=== PATIENT | female | born 1940 | race Caucasian/White ===

== ENCOUNTER 2024-04-22 10:25 | Outpatient (AMB) | payer MEDICARE, OTHER, SELFPAY ==
--- NOTE | 2024-04-22 10:26 | A.OFFVIS_ITS ---
Vital Signs 04/22/24 10:33 Height 5 ft BP 118/82 Blood Pressure Location Rt brachial Position Sitting Intake Visit Reasons: ENP-Hard to ambulate /unusual hand tremor/R/O Par Intake Note: Patient presents for unusual hand tremor Allergies Penicillins Allergy (Unknown, Verified 04/22/24 10:30) Unknown HPI Comments Details: 83y/o female comes here for evaluation of shuffling gait, falls. She is accompanied by her brother and sister in law. she used to live alone in an apartment in the first floor- her brother visited her often and has a [employer]. 3 weeks ago ( Mar 26) she was found in the stairs leading upto the house. she has had many falls before that . she was not using a cane or walker. No loss of consciousness. Her sister who lives upstairs called 911 and she was taken to [facility] ER. [facility] and [facility] to [facility] . The patient denies any back pain or neck pain After the fall in Mar she fractured her ribs. Her family noticed some abnormal movements in her right hand.she was started on carbidopa/levodopa 10/100 tid . The family is not sure if it helped. They are confused about the diagnosis. [facility] Medical History (Updated 04/22/24 @ 12:35 by Katie Powell MD) Gait apraxia Cleft palate and lip Vitamin D deficiency Osteoarthritis Hypercholesteremia HTN (hypertension) Generalized anxiety disorder Depression Anxiety and depression Family History Mother Dementia Father CHF (congestive heart failure) Sister Diabetes Social History Patient Tobacco Use Status: Never used Tobacco Physical Exam Vital Signs: Last Vital Signs BP 118/82 04/22/24 10:33 Const General: cooperative and comfortable Nutritional Appearance: average body habitus Orientation/consciousness: patient oriented x3 Neuro Other: dysconjugate gaze Normal blink and facial expression Repaired cleft palate FFM and foot taps normal Gait- needed help standing up from chair - whole p=body is tilted backwards and unable to walk General: patient oriented x3, tone normal, moves all extremities, no focal motor deficits and Unable to assess gait Cranial nerves: Yes Facial sensation intact/muscles of mastication intact, Yes Bilaterally intact EOM present, Yes Nystagmus not present, Yes Normal facial strength present, Yes Midline tongue present, Yes Symmetric palate elevation present and Yes Ability to bilaterally elevate shoulders present Cognition (Neuro): normal cognition Gait exam (Neuro): Unable to assess gait Motor exam (neuro): 5/5 motor strength present throughout and Normal motor muscle tone present throughout Deep tendon reflexes (DTR's): Right triceps reflex intensity grade: 1+, Left triceps reflex intensity grade: 1+, Rt Biceps (C5, C6): 1+, Left biceps reflex intensity grade: 1+, Right brachioradialis reflex intensity grade: 1+, Left brachioradialis reflex intensity grade: 1+, Right patellar reflex intensity grade: 1+ and Left patellar reflex intensity grade: 1+ Coordination: [id number] test normal Assessment & Plan Assessment & Plan (1) Gait apraxia: Comment: Frnotal gait disorder, parkinsonism Code(s): R48.2 - Apraxia Category: Medical Plan Increase carbidopa/levodopa 25/100 2 tabs tid continue PT discussed about joint terminal attack controller plans as the patient will need 24/ supervision at home to prevent falls. Reviewed [facility] Discharge notes and CT brain. Coding Level of Care Code New Pt Level 4 (59467) Complex EM visit Add On G2211 Diagnoses Gait apraxia R48.2
[2024-04-22 10:33] VITALS: BP 118/82
--- OUTSIDE RECORDS SUMMARY | 2024-04-22 11:52 | XMS_ITS | Continuity of Care Document ---
Author Organization [facility] ter Address [address] [place] [id number] Care Team Providers Care Agency Recruiter Name Role Phone Coreen Lua MD Primary Care Phys[id number] Date(s): 03/28/24 - 03/30/[address] [id number] Discharge Disposition: Disch/Trans to IP Rehab or unit w/in Hos Attending Physician: Mindy Godoy MD Admitting Physician: Mindy Godoy MD Referring Physician: Not on Staff, Referring MD Encounter Type: Disch Obv Allergies, Adverse Reactions, Alerts Substance Criticality Severity Reaction Reaction Severity Status penicillins Active Immunizations Given and Recorded Vaccine Date Status Refusal Reason SARS-CoV-2 (COVID-19) mRNA-1273 vaccine 04/04/21 R ecorded pneumococcal 23-valent vaccine 07/23/20 Given SARS-CoV-2 (COVID-19) mRNA BNT-162b2 vac 06/30/20 Recorded SARS-CoV-2 (COVID-19) mRNA BNT-162b2 vac 06/07/20 Recorded pneumococcal 13-valent vaccine 11/17/18 Given influenza virus vaccine, inactivated 04/23/18 Booker rded influenza virus vaccine, inactivated 01/19/16 Booker rded influenza virus vaccine, inactivated 1 12/19/14 Re corded 1Location History: [place] Medications acetaminophen 325 mg oral tablet 650 mg, By Mouth, Every 6 hours, PRN, Refills 0, Maintenance, Pain , Mild, 03/30/24 9:50:00 AM EST,Partial fill upon patient request if the prescription is for a schedule II opioid drug. Start Date: 03/30/24 Status: Ordered Repeat number: 1 atenolol 100 mg oral tablet 1 tablet, By Mouth, Daily, # 90 tablet, 1 Refills, Maintenance, 02/03/24 3:58:00 PM EDT, [id number], 151.8, cm, 01/08/24 15:22:00 EDT, Height Start Date: 02/03/24 Status: Ordered Quantity: 90.0 Unit: tablet Repeat number: 1 atenolol 50 mg oral tablet 100 mg, Tablet, By Mouth, 03/30/24 9:00:00 AM EST Start Date: 03/30/24 Stop Date: 03/30/24 Status: Completed Repeat number: 1 chlorthalidone 25 mg oral tablet See Instructions, 1/2 tablet By Mouth Daily, # 30 tablet, Refills 5, Tot. Refills 5, Maintenance, 03/20/23 9:59:00 AM EST, Instructions Replace Required Details, Route to Pharmacy Electronically, [facility]/pharmacy #[id number], Partial fill upon patient request if the prescription is for a schedule II opioid drug., 151.8, cm, 03/20/23 9:45:00 EST, Height Start Date: 03/20/23 Status: Ordered Quantity: 30.0 Unit: tablet Repeat number: 6 Compression Stockings See Instructions, # 1 each, Refills 1, Tot. Refills 1, Maintenance, surgical, calf length 20-30 mm Hg, 1 pair, 02/08/24 1:43:00 PM EDT, Supply Start Date: 02/08/24 Status: Ordered Quantity: 1.0 Unit: each Repeat number: 2 escitalopram 20 mg oral tablet 1 tablet = 20 mg, By Mouth, Daily, # 90 tablet, 1 Refills, Maintenance, 01/01/24 2:14:00 PM EDT, Tablet, [facility]/pharmacy #[id number], Partial fill upon patient request if the prescription is for a schedule II opioid drug., 151.8, cm, 01/01/24 13:20:00 EDT, Height Start Date: 01/01/24 Status: Ordered Quantity: 90.0 Unit: tablet Repeat number: 2 gabapentin 100 mg oral capsule 100 mg, By Mouth, 3 times a day, PRN, Refills 0, Maintenance, Pain , Mild, 03/30/24 9:50:00 AM EST,Partial fill upon patient request if the prescription is for a schedule II opioid drug. Start Date: 03/30/24 Status: Ordered Repeat number: 1 gabapentin 100 mg oral capsule 100 mg, Capsule, By Mouth, 03/30/24 9:00:00 AM EST Start Date: 03/30/24 Stop Date: 03/30/24 Status: Completed Repeat number: 1 ibuprofen 400 mg oral tablet 400 mg, By Mouth, 3 times a day, PRN, Refills 0, Maintenance, Pain , Mild, 03/30/24 9:51:00 AM EST,Partial fill upon patient request if the prescription is for a schedule II opioid drug. Start Date: 03/30/24 Status: Ordered Repeat number: 1 lidocaine 5% topical film 1 patch, Topically, Daily, 0 Refills, Maintenance, 03/30/24 9:51:00 AM EST, Patch, Partial fill upon patient request if the prescription is for a schedule II opioid drug. Start Date: 03/30/24 Status: Ordered Repeat number: 1 LORazepam 0.5 mg oral tablet 1 tablet = 0.5 mg, By Mouth, Daily, PRN as needed for anxiety, may take less, # 20 tablet, 0 Refills, Soft Stop, 01/01/24 2:15:00 PM EDT, Tablet, [facility]/pharmacy #[id number], 151.8, cm, 01/01/24 13:20:00 EDT, Height Start Date: 01/01/24 Status: Ordered Quantity: 20.0 Unit: tablet Repeat number: 1 oxyCODONE 5 mg oral tablet 5 mg, By Mouth, Every 6 hours, PRN, Refills 0, Tot. Refills 0, Maintenance, Pain , Severe, :51:00 AM EST, Partial fill upon patient request if the prescription is for a schedule II opioid drug. Start Date: 03/30/24 Status: Ordered Repeat number: 1 potassium chloride 20 mEq oral tablet, extended release 1 tablet = 20 mEq, By Mouth, Daily, # 90 tablet, 1 Refills, Maintenance, 03/20/23 10:00:00 AM EST, ER Tablet, [facility]/pharmacy #[id number], Partial fill upon patient request if the prescription is for a schedule II opioid drug., 151.8, cm, 03/20/23 9:45:00 EST, Height Start Date: 03/20/23 Stop Date: 09/16/23 Status: Ordered Quantity: 90.0 Unit: tablet Repeat number: 2 simvastatin 10 mg oral tablet 1, tablet, By Mouth, Daily at bedtime, # 90 tablet, Refills 3, Tot. Refills 3, Maintenance, :59:00 AM EST, Route to Pharmacy Electronically, [facility]/pharmacy #[id number], 151.8, cm, 03/20/23 9:45:00 EST, Height Start Date: 03/20/23 Status: Ordered Quantity: 90.0 Unit: tablet Repeat number: 4 Vitamin D3 2000 intl units oral capsule 1 capsule = 50 mcg, By Mouth, Daily, # 30 capsule, 5 Refills, Maintenance, 07/13/23 11:25:00 AM EDT,Capsule, [facility]/pharmacy #[id number], Partial fill upon patient request if the prescription is for a schedule II opioid drug., 151.8, cm, 07/13/23 11:00:00 EDT, Height Start Date: 07/13/23 Stop Date: 01/09/24 Status: Ordered Quantity: 30.0 Unit: capsule Repeat number: 6 Problem List Condition Confirmation Course Effective Dates Status Health Status Informant At high risk for falls Confirmed Active Depression Confirmed Active Fall at home Confirmed Active THEO (generalized anxiety disorder) Confirmed Active HTN - Hypertension Confirmed Active Hypercholesterolemia Confirmed Active Anxiety and depression Confirmed Active Major depression Confirmed Active Obese class I Confirmed Active OA (osteoarthritis) of knee 1 Confirmed Active Vitamin D deficiency Confirmed Active 1right knee Results Radiology Reports * Exam Date Time Procedure Performing Provider Status 03/29/24 4:55 AM Chest 2 Views Frontal and Lat Kayley Morales; Auth (Verified) Notes: (Chest 2 Views Frontal and Lat) Reason For Exam: Trauma;Other: RESULT: Chest 2 Views Frontal and Lat Chest 2 Views Frontal and Lat Reason: Trauma COMPARISON: 01/01/2024 FINDINGS: LINES AND TUBES: None. LUNGS AND PLEURA: Bibasilar lung atelectasis. Normal pulmonary vascularity. No pleural effusion. No pneumothorax. HEART, MEDIASTINUM AND SHARDA: Heart is normal in size. Normal mediastinal and hilar contour. BONES AND SOFT TISSUES: No acute abnormality. IMPRESSION: No acute abnormality. Chronic bibasilar atelectasis. WSN: [id number] Ordering Physician: Foirdaliza Duke Dictated By: Chetan Huizar MD Dictated Date/Time: 03/29/24 9:04 am Reviewed By: Chetan Huizar MD Signed By: Chetan Huizar MD Signed Date/Time: 03/29/24 9:04 am Transcribed By: DRE Transcribed Date/Time: 03/29/24 9:03 am * Exam Date Time Procedure Performing Provider Status 03/28/24 2:[address] Lumbar Spine W/O Contrast Chloe Sanabria; Auth (Verified) Notes: (CT Lumbar Spine W/O Contrast) Reason For Exam: Spine fracture, lumbar, traumatic;Other: RESULT: CT Lumbar Spine W/O Contrast CT Thoracic Spine W/O Contrast, CT Lumbar Spine W/O Contrast INDICATION: Reason: Other:; Spine fracture, thoracic, traumatic; Clinical Question(s): Fracture Dislocation, Fracture/Dislocation TECHNIQUE: Noncontrast CT of the thoracic and lumbar spine was performed. Bone and soft tissue algorithms were reconstructed along with coronal and sagittal computations. Weight-based protocol using automatic tube modulation was used to optimize exposure parameters. RADIATION DOSE PARAMETERS: CTDIvol Body: 15.48 mGy, DLP Body: 811 mGy*cm. COMPARISON: No relevant FINDINGS: There are acute, nondisplaced fractures of the posterior left seventh through ninth rib at the costovertebral junction. No vertebral body fractures are seen. Kyphosis within the thoracic spine is noted. There is a 0.6 cm anterolisthesis of L4 on L5. A soft tissue ovoid mass at the posterior right fourth-fifth interspace is seen which may representa schwannoma. The heart is normal in size. Coronary arterial calcification is present. Subcentimeter mediastinal lymph nodes are demonstrated. Atelectasis adjacent to the left rib fractures is seen. A hiatal hernia is present. The remainder of the visualized abdominal contents are unremarkable. IMPRESSION: Fractures of the left posterior seventh through ninth ribs with adjacent atelectasis. An actionable message ([place]) has been communicated via the Nativeflow system on 03/28/2024 3:55 PM, Message ID [id number]. WSN: [id number] Ordering Physician: Jadyn Hawkins Dictated By: Lisa Winchester MD Dictated Date/Time: 03/28/24 3:55 pm Reviewed By: Lisa Winchester MD Signed By: Lisa Winchester MD Signed Date/Time: 03/28/24 3:55 pm Transcribed By: DRE Transcribed Date/Time: 03/28/24 3:50 pm * Exam Date Time Procedure Performing Provider Status 03/28/24 2:[address] Thoracic Spine W/O Contrast Cristina Sanabria; Auth (Verified) Notes: (CT Thoracic Spine W/O Contrast) Reason For Exam: Spine fracture, thoracic, traumatic;Other: RESULT: CT Thoracic Spine W/O Contrast CT Thoracic Spine W/O Contrast, CT Lumbar Spine W/O Contrast INDICATION: Reason: Other:; Spine fracture, thoracic, traumatic; Clinical Question(s): Fracture Dislocation, Fracture/Dislocation TECHNIQUE: Noncontrast CT of the thoracic and lumbar spine was performed. Bone and soft tissue algorithms were reconstructed along with coronal and sagittal computations. Weight-based protocol using automatic tube modulation was used to optimize exposure parameters. RADIATION DOSE PARAMETERS: CTDIvol Body: 15.48 mGy, DLP Body: 811 mGy*cm. COMPARISON: No relevant FINDINGS: There are acute, nondisplaced fractures of the posterior left seventh through ninth rib at the costovertebral junction. No vertebral body fractures are seen. Kyphosis within the thoracic spine is noted. There is a 0.6 cm anterolisthesis of L4 on L5. A soft tissue ovoid mass at the posterior right fourth-fifth interspace is seen which may representa schwannoma. The heart is normal in size. Coronary arterial calcification is present. Subcentimeter mediastinal lymph nodes are demonstrated. Atelectasis adjacent to the left rib fractures is seen. A hiatal hernia is present. The remainder of the visualized abdominal contents are unremarkable. IMPRESSION: Fractures of the left posterior seventh through ninth ribs with adjacent atelectasis. An actionable message ([place]) has been communicated via the [employer]flow system on 03/28/2024 3:55 PM, Message ID [id number]. WSN: [id number] Ordering Physician: Jadyn Hawkins Dictated By: Lisa Winchester MD Dictated Date/Time: 03/28/24 3:55 pm Reviewed By: Lisa Winchester MD Signed By: Lisa Winchester MD Signed Date/Time: 03/28/24 3:55 pm Transcribed By: DRE Transcribed Date/Time: 03/28/24 3:50 pm * Exam Date Time Procedure Performing Provider Status 03/28/24 2:[address] Pelvis W/O Contrast Daniele Cristina ; Auth (Verified) Notes: (CT Pelvis W/O Contrast) Reason For Exam: Pelvic trauma;Other: RESULT: CT Pelvis W/O Contrast CT Pelvis W/O Contrast Reason: Other:; Pelvic trauma; Clinical Question(s): Other:; Fracture TECHNIQUE: Spiral CT without IV contrast through the pelvis only formatted in 3 planes. Enteric contrast administered. Automatic tube modulation and/or iterative dose reconstruction were used to optimize exposure parameters. CTDIvol Body: 11.76 mGy, DLP Body: 359 mGy*cm. COMPARISON: None FINDINGS: Evaluation of the bony pelvis, and proximal femora demonstrate no evidence of acute fracture. Mild hip joint space narrowing bilaterally. Mild degenerative changes of the sacroiliac joints and pubic symphysis. Mixed lucent and sclerotic bone lesion within the right posterior iliac crest measuring at least 2.4 x 1.5 cm. The included musculature demonstrates no evidence of atrophy or fatty infiltration. Rounded soft tissue density mass or lymph node in the right inguinal region measuring 1.9 x 1.8 cm. Small broad-based fat-containing umbilical hernia. Included small and large bowel loops are normal in caliber. Moderate amount retained stool throughout the colon. Probable 1.8 cm calcified uterine fibroid. Urinary bladder contour is unremarkable. No evidence of intraperitoneal free air or ascites. No evidence of retroperitoneal lymphadenopathy. IMPRESSION: No evidence of pelvic fracture. 1.9 x 1.8 cm soft tissue density mass within the right inguinal region concerning for lymphadenopathy. Correlation with dedicated ultrasound is recommended. Mixed lucent and sclerotic bone lesion within the right posterior iliac crest measuring 2.4 x 1.5 cm is indeterminant but may represent a cartilage-containing lesion such as enchondroma. Correlation with prior imaging recommended to establish long-term stability of this finding. Additional chronic findings as above An actionable message ([place]) has been communicated via the [employer]flow system on 03/28/2024 2:54 PM, Message ID [id number]. WSN: [id number] Ordering Physician: Jadyn Hawkins Dictated By: Aidan Pineda Jr, MD Dictated Date/Time: 03/28/24 2:54 pm Reviewed By: Aidan Pineda Jr, MD Signed By: Aidan Pineda Jr, MD Signed Date/Time: 03/28/24 2:54 pm Transcribed By: DRE Transcribed Date/Time: 03/28/24 2:48 pm * Exam Date Time Procedure Performing Provider Status 03/28/24 2:[address] Cervical Spine W/O Contrast Cristina Sanabria; Auth (Verified) Notes: (CT Cervical Spine W/O Contrast) Reason For Exam: Neck trauma, dangerous injury mechanism;Other: RESULT: CT Cervical Spine W/O Contrast CT Head/Brain W/O Contrast, CT Cervical Spine W/O Contrast INDICATION: Reason: Trauma; Clinical Question(s): Hematoma TECHNIQUE: Noncontrast head CT using axial technique was reconstructed in axial and coronal planes.Noncontrast spiral CT through the cervical spine was formatted in 3 planes. Automatic tube modulation was used for the cervical spine and iterative dose reconstruction was used for both the head and cervical spine to optimize scan parameters and image quality. CTDIvol Body: 12.67 mGy, DLP Body: 248 mGy*cm. CTDIvol Head: 45.61 mGy, DLP Head: 821 mGy*cm. COMPARISON: 03/28/2022. FINDINGS: Restaurant Inspector View Findings, Lines and Tubes: None. BRAIN AND EXTRA-AXIAL SPACES: No parenchymal hemorrhage, midline shift, or mass effect. Bang-white matter differentiation is wellpreserved. No acute infarct. Mild prominence of the ventricles and sulci consistent with parenchymal volume loss. Mild low-density white matter changes. No subarachnoid hemorrhage. No subdural or epidural collection. CALVARIUM, SKULL BASE, AND SOFT TISSUES: No fractures or suspicious bony lesions. Partial opacification of the left maxillary and right sphenoid sinuses. Mastoid air cells are clear. Post lens replacement. Chronic deformity of the soft tissues overlying the nasal bones. CERVICAL SPINE: No fracture. No acute osseous abnormalities. Normal alignment. No locked or perched facet. Mild multilevel degenerative disc space narrowing andend plate irregularity. OTHER BONES: No acute abnormality. CERVICAL SOFT TISSUES AND LUNG APICES: Normal soft tissues. Visualized lung apices are clear. IMPRESSION: No acute abnormality of the head or cervical spine. WSN: [id number] Ordering Physician: Jadyn Hawkins Dictated By: Kira Echevarria MD Dictated Date/Time: 03/28/24 2:37 pm Reviewed By: Kira Echevarria MD Signed By: Kira Echevarria MD Signed Date/Time: 03/28/24 2:37 pm Transcribed By: DRE Transcribed Date/Time: 03/28/24 2:29 pm * Exam Date Time Procedure Performing Provider Status 03/28/24 2:[address] Head/Brain W/O Contrast Dmitry Sanabria; Auth (Verified) Notes: (CT Head/Brain W/O Contrast) Reason For Exam: Trauma RESULT: CT Head/Brain W/O Contrast CT Head/Brain W/O Contrast, CT Cervical Spine W/O Contrast INDICATION: Reason: Trauma; Clinical Question(s): Hematoma TECHNIQUE: Noncontrast head CT using axial technique was reconstructed in axial and coronal planes.Noncontrast spiral CT through the cervical spine was formatted in 3 planes. Automatic tube modulation was used for the cervical spine and iterative dose reconstruction was used for both the head and cervical spine to optimize scan parameters and image quality. CTDIvol Body: 12.67 mGy, DLP Body: 248 mGy*cm. CTDIvol Head: 45.61 mGy, DLP Head: 821 mGy*cm. COMPARISON: 03/28/2022. FINDINGS: Restaurant Inspector View Findings, Lines and Tubes: None. BRAIN AND EXTRA-AXIAL SPACES: No parenchymal hemorrhage, midline shift, or mass effect. Bang-white matter differentiation is wellpreserved. No acute infarct. Mild prominence of the ventricles and sulci consistent with parenchymal volume loss. Mild low-density white matter changes. No subarachnoid hemorrhage. No subdural or epidural collection. CALVARIUM, SKULL BASE, AND SOFT TISSUES: No fractures or suspicious bony lesions. Partial opacification of the left maxillary and right sphenoid sinuses. Mastoid air cells are clear. Post lens replacement. Chronic deformity of the soft tissues overlying the nasal bones. CERVICAL SPINE: No fracture. No acute osseous abnormalities. Normal alignment. No locked or perched facet. Mild multilevel degenerative disc space narrowing andend plate irregularity. OTHER BONES: No acute abnormality. CERVICAL SOFT TISSUES AND LUNG APICES: Normal soft tissues. Visualized lung apices are clear. IMPRESSION: No acute abnormality of the head or cervical spine. WSN: [id number] Ordering Physician: Jadyn Hawkins Dictated By: Kira Echevarria MD Dictated Date/Time: 03/28/24 2:37 pm Reviewed By: Kira Echevarria MD Signed By: Kira Echevarria MD Signed Date/Time: 03/28/24 2:37 pm Transcribed By: DRE Transcribed Date/Time: 03/28/24 2:29 pm Vital Signs Most recent to oldest [Reference Range]: 1 2 3 Height 152 cm (03/30/24 11: AM) 152 cm (03/30/24 7:29 AM) 152 cm (03/30/24 3:58 AM) Weight 69.8 kg (03/28/24 10:14 PM) Oxygen Saturation [94-100 %] 99 % (03/30/24: AM) 98 % (03/30/24 7:29 AM) 97 % (03/30/24 3:58 AM) Pulse Rate [55-90 bpm] 65 bpm (03/30/24 12:22 PM) 65 bpm (03/30/24 11: AM) 55 bpm (03/30/24 7:29 AM) Body Mass Index [18.5-24.99 kg/m2] 30.21 kg/m2 *>HHI* (03/28/24 10:14 PM) Blood Pressure [90-138/55-84 mm Hg] 134/73mm Hg (03/30/24 12:22 PM) 134/73mm Hg (03/30/24: AM) 137/88mm Hg (03/30/24 7:29 AM) Respiratory Rate [16-30 br/min] 20 br/min (03/30/24 12:21 PM) 18 br/min (03/30/24: AM) 18 br/min (03/30/24 7:29 AM) Temperature [96.8-100.4 DegF] 97.9 DegF (03/30/24 11: AM) 97.5 DegF (03/30/24 7:29 AM) 98 DegF (03/30/24 3:58 AM) Mode of Delivery (Oxygen) Room air (03/30/24 11:26 AM) Room air (03/30/24 7:29 AM) Room air (03/30/24 3:58 AM) Blood pressure sites Arm, left (03/30/24 11:26 AM) Arm, right (03/30/24 7:29 AM) Arm, right (03/30/24 3:58 AM) Temperature Route Oral (03/30/24 11:26 AM) Oral (03/30/24 7:29 AM) Oral (03/30/24 3:58 AM) Dry Weight 69.8 kg (03/28/24 10:14 PM) Social History Social History Type Response Smoking Status Never smoker entered on: 01/03/15 Sex Sex Representation Female (finding) Admission evaluation note * Fiordaliza Duke MD: PERFORM Event Display: Admission Note Authored Date: Patient: ??LETTY RIGGINS ? Age:??83 Years?Sex:??Female?:??1940?? Provider Clinical Summary Consulting Physician: Dr. Cedillo Clinical Question: Rib Fx Consult Attending:??Dr. Godoy Chief Complaint mechnical fall from standing; shoe slipped; landed on back; has left upper back and shoulder pain; no thinners; no LOC; no headstrike History of Present Illness Letty??is an 83-year-old female with a history of hypertension, hyperlipidemia??who had a mechanical fall earlier today. ??She presented to the emergency department??and on workup was found to have left-sided rib fractures 7 through 9.?? Given these findings??a trauma surgery consultation was requested. ?? The patient was seen about at bedside. ??She was resting comfortably in no acute distress. ??Shestates that she felt??as she was walking outside and landed on some stairs.?? She landed on her left side. ??She denies any head strike or loss of consciousness. ??She also denies any prodromal symptoms such as headache, vision changes, dizziness.?? She remembers the entire??accident.?? She denies any fever, chills, shortness of breath, nausea or vomiting.?? She states that she is recently had??pneumonia in the past.?? She denies??being on any blood thinners.?? She states that she is regularly able to ambulate without difficulty.?? I-S was completed at bedside and was only??250.?? Despite??fol lowing directions appropriately??there was a lack of effort. Review of Systems Negative unless specified above Physical Exam Vitals & Measurements T:??99.1?F?? TMIN:??98.1?F?? TMAX:??99.1?F?? HR:??78??(Peripheral)?? RR:??17?? BP:??168/72?? SpO2:??95%?? General: no acute distress, alert, awake Head: normocephalic, atraumatic, no hematomas, no abrasions, no wounds, no deformities Face: no ecchymosis, no abrasions, no wounds Eyes: pupils are 3mm, equal, round, and reactive; extraocular movement intact Ears: no hemotympanum, no blood in external auditory canal, no abrasions, no miller's sign Nose: no epistaxis, no deformity Mandible: no deformity, no malocclusion Neck: no hematoma, no ecchymosis, no wounds, trachea midline Chest: symmetric, no deformity, sternum, chest wall, and clavicles are nontender to palpation, no crepitus appreciated; IS 250 (no clear area of tenderness) Heart: regular rate and rhythm, no murmurs, Vascular: palpable dorsalis pedis and posterior tibial pulses bilaterally Lungs: clear to auscultation bilaterally, nonlabored breathing Abdomen: soft, nondistended, nontender, no wounds, no ecchymosis, no hematoma Pelvis: stable, nontender Back: no ecchymosis, no abrasions, no hematoma, no wounds Cervical spine: no midline deformities or stepoffs, no tenderness Thoracic spine: no midline deformities or stepoffs, no tenderness Lumbar spine: no midline deformities or stepoffs, no tenderness Extremities: no long bone deformities, no wounds, no abrasions, no ecchymosis, no hematomas, full active range of motion Neurologic: GCS15; CN II to XII grossly intact bilaterally; 5/5 strength and sensation to light touch intact in the bilateral upper and lower extremities?? Assessment/Plan Letty is an 83-year-old female??who presented from home for mechanical fall from standing??and in the emergency department was found to have left-sided rib fractures??7 through 9.?? Trauma surgery was consulted??for evaluation.?? The patient was seen and evaluated bedside and was hemodynamically stable and afebrile.?? There was minimal??pain??on evaluation??and her I-S was??250.?? Despite herlow I-S, the patient showed no signs of increased work of breathing??or respiratory distress. ??Shewas not on any supplemental oxygenation.?? Given the patient's rib fractures, she will need to be admitted for pain management have a??PT??consult completed for safe disposition. ?? Inj: L Rib Fx - ?? Plan: Admission Rib Fracture Pain Protocol AM CXR CPT/DuoNebs PT consult Med rec Tertiary in AM Case Management c/s ?? Discussed with Dr. Godoy Trauma Surgery [id number] ?? Problem List/Past Medical History Ongoing Anxiety and depression At high risk for falls Depression Fall at home THEO (generalized anxiety disorder) HTN - Hypertension Hypercholesterolemia Major depression OA (osteoarthritis) of knee Vitamin D deficiency Procedure/Surgical History ???cleft palate and cleft lip surgery Medications Inpatient Acetaminophen, 650 mg, By Mouth, Every 6 hours Acetaminophen Tablet, 650 mg, By Mouth, Once Duoneb Inhalation Solution, 1 vials, BAND Nebulizer, 4 times a day Enoxaparin Inj, 40 mg= 0.4 mL, Subcutaneous Injection, Daily gabapentin 100 mg oral capsule, 100 mg, By Mouth, 3 times a day Ibuprofen Tablet, 400 mg, By Mouth, 3 times a day Lidocaine 5% Patch, 1 each, Topically, Once oxyCODONE 5 mg oral tablet, 5 mg, By Mouth, Every 6 hours, PRN Remove Patch, 1 each, Topically, Once Home atenolol 100 mg oral tablet, 1 tablet, By Mouth, Daily Azithromycin 5 Day Dose Pack 250 mg oral tablet, 1 pack/packet, By Mouth, Once chlorthalidone 25 mg oral tablet, See Instructions, 5 refills Compression Stockings, See Instructions, 1 refills escitalopram 20 mg oral tablet, 20 mg= 1 tablet, By Mouth, Daily, 1 refills LORazepam 0.5 mg oral tablet, 0.5 mg= 1 tablet, By Mouth, Daily, PRN potassium chloride 20 mEq oral tablet, extended release, 20 mEq= 1 tablet, By Mouth, Daily, 1 refills simvastatin 10 mg oral tablet, 1 tablet, By Mouth, Daily at bedtime, 3 refills Vitamin D3 2000 intl units oral capsule, 50 mcg= 1 capsule, By Mouth, Daily, 5 refills Allergies penicillins Social History Alcohol Use: Never. Electronic Cigarette/Vaping Electronic Cigarette Use: Never. Employment/School Status: Retired. Other: [employer] [facility] [place]. Exercise Self assessment: Good condition. Home/Environment Living situation: Home/Independent. Lives with: Siblings. Nutrition/Health Diet: Regular. Sexual Sexually involved in last 6 months: No. Substance Abuse Use: Never. Tobacco Never smoker Family History Congestive heart failure: Father. Dementia: Mother. Diabetes mellitus type II: Sister. Immunizations Vaccine Date Status SARS-CoV-2 (COVID-19) mRNA-1273 vaccine 04/04/2021 Recorded pneumococcal 23-valent vaccine 07/23/2020 Given SARS-CoV-2 (COVID-19) mRNA BNT-162b2 vac 06/30/2020 Recorded SARS-CoV-2 (COVID-19) mRNA BNT-162b2 vac 06/07/2020 Recorded pneumococcal 13-valent vaccine 11/17/2018 Given influenza virus vaccine, inactivated 04/23/2018 Recorded influenza virus vaccine, inactivated 01/19/2016 Recorded influenza virus vaccine, inactivated 12/19/2014 Recorded Comments : [facility] Results BLOOD COUNT & DIFF WBC 11.3 k/mm3 (High)?? 03/28/2024 15:11 RBC 4.58 m/mm3 ()?? 03/28/2024 15:11 Hgb 13.1 Gm/dL ()?? 03/28/2024 15:11 Hct 40.8 % ()?? 03/28/2024 15:11 MCV 89.1 femtoliters ()?? 03/28/2024 15:11 MCH 28.6 pg ()?? 03/28/2024 15:11 MCHC 32.1 Gm/dL (Low)?? 03/28/2024 15:11 Platelet Count 180 k/mm3 ()?? 03/28/2024 15:11 RDW-SD 43.4 femtoliters ()?? 03/28/2024 15:11 MPV 11.7 femtoliters ()?? 03/28/2024 15:11 Nucleated RBC (Automated) 0.0 #/100 WBC'S ()?? 03/28/2024 15:11 Abs. NRBC 0.0 k/mm3 ()?? 03/28/2024 15:11 Abs. Neut 9.5 k/mm3 (High)?? 03/28/2024 15:11 Abs. Lymph 0.9 k/mm3 ()?? 03/28/2024 15:11 Abs. [place] 0.7 k/mm3 ()?? 03/28/2024 15:11 Abs. Eo 0.0 k/mm3 ()?? 03/28/2024 15:11 Abs. Baso 0.0 k/mm3 ()?? 03/28/2024 15:11 Neut % 84.4 % (High)?? 03/28/2024 15:11 Lymph % 8.0 % (Low)?? 03/28/2024 15:11 [place] % 6.2 % ()?? 03/28/2024 15:11 Eos % 0.4 % ()?? 03/28/2024 15:11 Baso % 0.3 % ()?? 03/28/2024 15:11 Imm Gran 0.7 % ()?? 03/28/2024 15:11 Abs. Imm Gran 0.1 k/mm3 ()?? 03/28/2024 15:11 ?? CARDIAC High Sensitivity Troponin (HSTnT) 22 ng/L (High)?? 03/28/2024 15:11 ?? CHEM GENERAL Sodium 140 mmol/L ()?? 03/28/2024 15:11 Potassium 4.3 mmol/L ()?? 03/28/2024 15:11 Chloride 102 mmol/L ()?? 03/28/2024 15:11 Bicarbonate Level 27 mmol/L ()?? 03/28/2024 15:11 Anion Gap 11 ()?? 03/28/2024 15:11 Glucose Level 131 mg/dL (High)?? 03/28/2024 15:11 BUN 14 mg/dL ()?? 03/28/2024 15:11 Creatinine-Blood 0.64 mg/dL ()?? 03/28/2024 15:11 Estimated GFR Creatinine 89 ML/MIN/1.73 M2 ()?? 03/28/2024 15:11 Calcium 9.2 mg/dL ()?? 03/28/2024 15:11 Protein, Total 6.8 Gm/dL ()?? 03/28/2024 15:11 Albumin 3.8 Gm/dL ()?? 03/28/2024 15:11 AG Ratio 1.3 ()?? 03/28/2024 15:11 Alkaline Phosphatase 168 units/L (High)?? 03/28/2024 15:11 AST (SGOT) 44 units/L (High)?? 03/28/2024 15:11 ALT (SGPT) 20 units/L ()?? 03/28/2024 15:11 Bilirubin, Total 0.8 mg/dL ()?? 03/28/2024 15:11 ?? ENDOCRINE/TUMOR MARKER TSH 1.56 uIU/mL ()?? 03/28/2024 15:11 ?? VIROLOGY COVID-19 by RT-PCR NEGATIVE ()?? 03/28/2024 15:11 ?? Images * Final Report * ?? Reason For Exam Trauma ?? RESULT: CT Head/Brain W/O Contrast CT Head/Brain W/O Contrast, CT Cervical Spine W/O Contrast? INDICATION: Reason: Trauma; Clinical Question(s): Hematoma ?? TECHNIQUE: Noncontrast head CT using axial technique was reconstructed in axial and coronal planes.Noncontrast spiral CT through the cervical spine was formatted in 3 planes. Automatic tube modulation was used for the cervical spine and iterative dose reconstruction was used for both the head and cervical spine to optimize scan parameters and image quality. ? CTDIvol Body: 12.67 mGy, ??DLP Body: 248 mGy*cm. ? CTDIvol Head: 45.61 mGy, DLP Head: 821 mGy*cm. ? COMPARISON: 03/28/2022. ?? FINDINGS:? Restaurant Inspector View Findings, Lines and Tubes: None. ?? BRAIN AND EXTRA-AXIAL SPACES: No parenchymal hemorrhage, midline shift, or mass effect. Bang-white matter differentiation is wellpreserved. No acute infarct. ?? Mild prominence of the ventricles and sulci consistent with parenchymal volume loss. ? Mild low-density white matter changes. ?? No subarachnoid hemorrhage. No subdural or epidural collection. ?? CALVARIUM, SKULL BASE, AND SOFT TISSUES: No fractures or suspicious bony lesions.? Partial opacification of the left maxillary and right sphenoid sinuses. Mastoid air cells are clear. ?? Post lens replacement. ?? Chronic deformity of the soft tissues overlying the nasal bones.? CERVICAL SPINE:?? No fracture. No acute osseous abnormalities. ?? Normal alignment. No locked or perched facet. Mild multilevel degenerative disc space narrowing andend plate irregularity. ?? OTHER BONES:?? No acute abnormality. ?? CERVICAL SOFT TISSUES AND LUNG APICES:?? Normal soft tissues. Visualized lung apices are clear. ?? IMPRESSION: ?? No acute abnormality of the head or cervical spine. ?? WSN: [id number] ? Ordering Physician: Jadyn Hawkins ?? Signature Line Dictated By: ?Kira Echevarria MD Dictated Date/Time: ?03/28/24 2:37 pm Reviewed By: ?Kira Echevarria MD Signed By: ? Kira Echevarria MD Signed Date/Time: ? 03/28/24 2:37 pm Transcribed By: ? CSB Transcribed Date/Time: ?03/28/24 2:29 pm ? CT Head/Brain W/O ContrastThis document has an image ?? * Final Report * ?? Reason For Exam Pelvic trauma;Other: ?? RESULT: CT Pelvis W/O Contrast CT Pelvis W/O Contrast? Reason: Other:; Pelvic trauma; Clinical Question(s): Other:; Fracture? TECHNIQUE: Spiral CT without IV contrast through the pelvis only formatted in 3 planes. Enteric contrast administered. Automatic tube modulation and/or iterative dose reconstruction were used to optimize exposure parameters.? CTDIvol Body: 11.76 mGy, ??DLP Body: 359 mGy*cm. ? COMPARISON: None ?? FINDINGS:? Evaluation of the bony pelvis, and proximal femora demonstrate no evidence of acute fracture. Mild hip joint space narrowing bilaterally. Mild degenerative changes of the sacroiliac joints and pubic symphysis. ??Mixed lucent and sclerotic bone lesion within the right posterior iliac crest measuringat least 2.4 x 1.5 cm. ?? The included musculature demonstrates no evidence of atrophy or fatty infiltration. Rounded soft tissue density mass or lymph node in the right inguinal region measuring 1.9 x 1.8 cm. Small broad-based fat-containing umbilical hernia. ?? Included small and large bowel loops are normal in caliber. Moderate amount retained stool throughout the colon. ?? Probable 1.8 cm calcified uterine fibroid. Urinary bladder contour is unremarkable. No evidence of intraperitoneal free air or ascites. No evidence of retroperitoneal lymphadenopathy. ?? IMPRESSION:? No evidence of pelvic fracture. ?? 1.9 x 1.8 cm soft tissue density mass within the right inguinal region concerning for lymphadenopathy. Correlation with dedicated ultrasound is recommended. ?? Mixed lucent and sclerotic bone lesion within the right posterior iliac crest measuring 2.4 x 1.5 cm is indeterminant but may represent a cartilage-containing lesion such as enchondroma. Correlation with prior imaging recommended to establish long-term stability of this finding. ?? Additional chronic findings as above ? An actionable message ([place]) has been communicated via the Nativeflow system on 03/28/2024 2:54 PM, Message ID [id number]. WSN: [id number] ? Ordering Physician: Jadyn Hawkins ?? Signature Line Dictated By: ?Aidan Pineda Jr, MD Dictated Date/Time: ?03/28/24 2:54 pm Reviewed By: ?Aidan Pineda Jr, MD Signed By: ? Aidan Pineda Jr, MD Signed Date/Time: ? 03/28/24 2:54 pm Transcribed By: ? CSB Transcribed Date/Time: ?03/28/24 2:48 pm ? CT Pelvis W/O Contrast This document has an image * Final Report * ?? Reason For Exam Spine fracture, lumbar, traumatic;Other: ?? RESULT: CT Lumbar Spine W/O Contrast CT Thoracic Spine W/O Contrast, CT Lumbar Spine W/O Contrast? INDICATION: Reason: Other:; Spine fracture, thoracic, traumatic; Clinical Question(s): Fracture Dislocation, Fracture/Dislocation ?? TECHNIQUE: Noncontrast CT of the thoracic and lumbar spine was performed. Bone and soft tissue algorithms were reconstructed along with coronal and sagittal computations. ?? Weight-based protocol using automatic tube modulation was used to optimize exposure parameters.? RADIATION DOSE PARAMETERS:? CTDIvol Body: 15.48 mGy, ??DLP Body: 811 mGy*cm. ? COMPARISON: No relevant ? FINDINGS: ?? There are acute, nondisplaced fractures of the posterior left seventh through ninth rib at the costovertebral junction. No vertebral body fractures are seen. Kyphosis within the thoracic spine is noted. There is a 0.6 cm anterolisthesis of L4 on L5. ?? A soft tissue ovoid mass at the posterior right fourth-fifth interspace is seen which may representa schwannoma. ?? The heart is normal in size. Coronary arterial calcification is present. Subcentimeter mediastinal lymph nodes are demonstrated. ?? Atelectasis adjacent to the left rib fractures is seen. ?? A hiatal hernia is present. ?? The remainder of the visualized abdominal contents are unremarkable. ?? IMPRESSION: ?? Fractures of the left posterior seventh through ninth ribs with adjacent atelectasis. ?? An actionable message ([place]) has been communicated via the Nativeflow system on 03/28/2024 3:55 PM, Message ID [id number]. WSN: [id number] ? Ordering Physician: Jadyn Hawkins ?? Signature Line Dictated By: ?Lisa Winchester MD Dictated Date/Time: ?03/28/24 3:55 pm Reviewed By: ?Lisa Winchester MD Signed By: ? Lisa Winchester MD Signed Date/Time: ? 03/28/24 3:55 pm Transcribed By: ? CSB Transcribed Date/Time: ?03/28/24 3:50 pm ?? * Final Report * ?? Reason For Exam Spine fracture, thoracic, traumatic;Other: ?? RESULT: CT Thoracic Spine W/O Contrast CT Thoracic Spine W/O Contrast, CT Lumbar Spine W/O Contrast? INDICATION: Reason: Other:; Spine fracture, thoracic, traumatic; Clinical Question(s): Fracture Dislocation, Fracture/Dislocation ?? TECHNIQUE: Noncontrast CT of the thoracic and lumbar spine was performed. Bone and soft tissue algorithms were reconstructed along with coronal and sagittal computations. ?? Weight-based protocol using automatic tube modulation was used to optimize exposure parameters.? RADIATION DOSE PARAMETERS:? CTDIvol Body: 15.48 mGy, ??DLP Body: 811 mGy*cm. ? COMPARISON: No relevant ? FINDINGS: ?? There are acute, nondisplaced fractures of the posterior left seventh through ninth rib at the costovertebral junction. No vertebral body fractures are seen. Kyphosis within the thoracic spine is noted. There is a 0.6 cm anterolisthesis of L4 on L5. ?? A soft tissue ovoid mass at the posterior right fourth-fifth interspace is seen which may representa schwannoma. ?? The heart is normal in size. Coronary arterial calcification is present. Subcentimeter mediastinal lymph nodes are demonstrated. ?? Atelectasis adjacent to the left rib fractures is seen. ?? A hiatal hernia is present. ?? The remainder of the visualized abdominal contents are unremarkable. ?? IMPRESSION: ?? Fractures of the left posterior seventh through ninth ribs with adjacent atelectasis. ?? An actionable message ([place]) has been communicated via the Nativeflow system on 03/28/2024 3:55 PM, Message ID [id number]. WSN: [id number] ? Ordering Physician: Jadyn Hawkins ?? Signature Line Dictated By: ?Lisa Winchester MD Dictated Date/Time: ?03/28/24 3:55 pm Reviewed By: ?Lisa Winchester MD Signed By: ? Lisa Winchester MD Signed Date/Time: ? 03/28/24 3:55 pm Transcribed By: ? CSB Transcribed Date/Time: ?03/28/24 3:50 pm ? CT Thoracic Spine W/O Contrast This document has an image ?? EKG study * Event Display: ECG 12-Lead Authored Date: Please click on pdf link to open report * Event Display: ECG 12-Lead Authored Date: Ventricular Rate: 83 BPM Atrial Rate: 83 BPM P-R Interval: 112 ms QRS Duration: 84 ms Q-T Interval: 382 ms QTC Calculation(Bazett): 448 ms P [place]: 35 degrees R [place]: 8 degrees T [place]: -14 degrees Normal sinus rhythm Nonspecific ST and T wave abnormality Abnormal ECG When compared with ECG of 28-Mar-2022 22:20, Nonspecific T wave abnormality now evident in Anterolateral leads Confirmed by Ren Quinones ([id number]) on 03/28/2024 3:25:05 PM [place] * Chasidy Bliss RN: SIGN, MODIFY, PERFORM, SIGN, VERIFY Event Display: Progress Note Hospital Authored Date: Patient: LETTY RIGGINS Age: 83 years Sex: Female : 1940 Associated Diagnoses: None Author: Chasidy Bliss RN Findings Problem Related to Alteration in Musculoskeletal : Alteration in Musculoskeletal Func/new 03/30/2024 9:00 EST Alteration in Musculoskeletal Related to Fracture, Other: 7- 9 left rib fxs Goals & Outcomes, Musculoskeletal Affected extremity will maintain color/motion/sensation, Pt demonstrates precautions/exercise/ transfers per protocol, Pt will be free from complications of immobility, Pt will report acceptable level of comfort/pain relief Interventions, Musculoskeletal Monitor patients ambulation status, monitor Color/Motion/Sensation, Assist with repositioning, Encourage deep breathing & coughing exercises, Notify MD immediately if tissue perfusion deteriorates, Obtain assistive devices as needed, Teach & Encourage use of Incentive spirometer, Teach Pt/caregiver on ADL's & adaptive equipment, Teach Pt/caregiver on exercises BH Goals/Interventions, Musculoskeletal Yes Musculoskeletal, Problem Start 03/28/2024 23:25 Reviewed Plan with, Musculoskeletal Patient Patient Progression, Musculoskeletal Pt progressing according to plan . Narrative/Incidental P: Alteration in musculoskeletal. I: See interventions above. E: Pt admitted s/p fall with rib fxs. Pt alert and oriented x 4. VSS. Tele SR SB 50-70's. LS clear.Pt denies SOB. (+) BS x4. LBM 03/28. Voiding in primafit c/y/u. Pain 0 /10. Taking motrin and Tylenol with good relief. Pt up in chair. Plan is for dc to rehab. . * Chasidy Bliss RN: PERFORM Event Display: Progress Note Hospital Authored Date: Report given to discharge unit [facility] RN, informed RN that am morning meds not given and if she could give them when pt arrives to [address], she confirmed they can give them. Pt transported via W/C. * James Chung DO: PERFORM Event Display: Progress Note Hospital Authored Date: Patient: ??LETTY RIGGINS ? Age:??83 Years?Sex:??Female?:??1940?? Subjective Pt seen and examined at bedside this morning. No acute overnight events. Pt??sitting in chair. ??Ptc/o continued pain. Pt is eating and drinking. Pt is urinating and passing gas. Pt has not moved her bowels in 2 days. Pt has been out of bed to the chair. Pt denies??fevers, chills Review of Systems A full review of systems was completed and is otherwise negative except as mentioned in history of present illness. Physical Exam Vitals & Measurements T:??97.5?F?? HR:??55??(Peripheral)?? RR:??18?? BP:??137/88?? SpO2:??98%?? HT:??152??cm?? WT:??69.8??kg?? BMI:??30.21?? Physical Exam: Constitutional: No acute distress, awake, alert and oriented x3 Respiratory: Minimal tenderness to palpation of ribs 7-9. IS is 250. Able to produce a nonproductive??cough.Normal respiratory rate and effort. ?? Cardiovascular: Regular rate and rhythm. ?? Gastrointestinal: Abdomen soft, non-distended, non-tender. No guarding, no rebound tenderness, Extremities: No clubbing or cyanosis Drains: Assessment/Plan Ms. Riggins is an 83 year old female with a??PMH of HTN, history of falls at home, and osteoarthritis ??who presented to the ED following a??fall. Denies LOC, head strike, dizziness, lightheadedness,chest pain or shortness of breath prior to falling.??The patient lives with her younger sister. Wong is her health care proxy. Her initial pain is improving on her current regimen. No additional injuries found on tertiary exam. She is able to cough, and her IS is 250 (partially low due to lack of understanding how to use).??Of note, she also states??she??had??COVID followed??be PNA about??2 months ago. ?? Injuries: Fractures of the left posterior ribs 7-9 with adjacent atelectasis ?? Diagnoses Multiple fractures of ribs, unspecified side, initial encounter for closed fracture ??(S22.49XA) ?? Consultants: None ?? Plan: Will adjust bowel reg Regular diet Pain??control Encourage OOB PT consult (rehab) Encourage incentive spirometer use DVT PPx: LVNX Discharge Planning:??dispo pending rehab ? Please page Trauma Surgery with any questions or concerns [id number].?? Case discussed Dr. Palencia ? Intake and Output Intake and Output Results?? This visit (24 hour periods starting at 07:00 EST)? 03/30/24 *?? 03/29/24?? 03/28/24?? Total Summary?Intake mL?? --?? 510?? --?Output mL?? --?? 950?? 150?Fluid Balance ?? --?? -440?? -150?? Intake (1)?Oral Fluids mL?? --?? 510?? --?Total?? --?? 510?? --?? Output (1)?Urine Voided mL?? --?? 950?? 150?Total?? --?? 950?? 150?? Counts (2)?Oral Fluids mL?? --?? 510?? --?Urine Voided mL?? --?? 950?? 150? * This column has not completed the indicated time period.?? Labs Last 24 Hours No qualifying data available. * Slime ALBERT, Cherrie Pimentel: PERFORM Event Display: Progress Note Hospital Authored Date: Attending Attestation: ?? The patient was seen, examined, and discussed with the Trauma team on the date of service documented above. ??The clinical course, labs, and radiological studies were reviewed by me and findings on exam confirmed. ??I agree with the findings as well as the assessment and plan as delineated above. I have??performed the substantive portion of the medical decision making for the ?? Diagnoses Multiple fractures of ribs, unspecified side, initial encounter for closed fracture ??(S22.49XA) ?? Medical Decision Making: HIGH -chronic illness w/ SEVERE exac, progression, or AE of Tx, or illness or injury that poses a threat to life or bodily function; 2 of (note / test / order / indep historian = 3), interpretation /discussion; HIGH risk --- Cherrie Palencia MD, [facility], [facility], [facility] Division of Trauma, Acute Care Surgery, and Surgical Critical Care?? * Celsa Siddiqi RN: PERFORM, SIGN, VERIFY Event Display: Progress Note Hospital Authored Date: Patient: LETTY RIGGINS Age: 83 years Sex: Female : 1940 Associated Diagnoses: None Author: Celsa Siddiqi RN Findings Problem Related to Alteration in Musculoskeletal : Alteration in Musculoskeletal Func/new 03/30/2024 1:00 EST Alteration in Musculoskeletal Related to Fracture, Other: 7- 9 left rib fxs Goals & Outcomes, Musculoskeletal Affected extremity will maintain color/motion/sensation, Pt demonstrates precautions/exercise/ transfers per protocol, Pt will be free from complications of immobility, Pt will report acceptable level of comfort/pain relief Interventions, Musculoskeletal Monitor patients ambulation status, monitor Color/Motion/Sensation, Assist with repositioning, Encourage deep breathing & coughing exercises, Notify MD immediately if tissue perfusion deteriorates, Obtain assistive devices as needed BH Goals/Interventions, Musculoskeletal Yes Musculoskeletal, Problem Start 03/28/2024 23:25 Reviewed Plan with, Musculoskeletal Patient Patient Progression, Musculoskeletal Pt progressing according to plan . Nursing Data Integumentary Data. : Integumentary Data. 03/30/2024 1:27 EST Skin Color Normal for ethnicity Skin Description Moist Skin Temperature Warm Skin Integrity Intact Skin Turgor Non-elastic Mucous Membrane Color Pale Mucous Membrane Description Moist Integumentary WNL except 03/30/2024 1:23 EST Activity Walks occasionally Mobility Slightly limited . Musculoskeletal Data. : Musculoskeletal Data. 03/30/2024 1:23 EST Musculoskeletal Symptoms Fracture, Joint swelling, Joint tenderness Musculoskeletal Abnormality Location Other: Left Rib # 7-9 Musculoskeletal WNL except . Evaluation P- Alteration in musculoskeletal function. I- Same as above E- S/P fall sustaining left rib #. Skin intact. Observe to be alert and oriented X 3, sometimes forgetful. Like pills crush/whole with apple sauce/ water. Lungs clear on auscultation. Patient on roomair. fly winder in place with Sinus Salvador rhythm and HR in the 50's - 60's. Last bowel movement , Senna and Colace given to promote bowel movement. Patient ambulate with X 1 assistance wit h walker, gaits unsteady. Sacrum intact +CMS + Good dorsi and plantar flex. Patient on Lovenox for DVT prophylaxis. C-boot in place to bilateral leg. Call vizcarra and personal items kept in reach. Patient requested to stay in recliner overnight. . Discharge Information Rehabilitation Discharge : Rehab Discharge Index 03/29/2024 8:51 EST Comments on treatment indicated 83 yo F presenting with mixed lucent and sc;erotic bone lesion in R inguinal region and Left ribs 7-9 fx 2' fall. RLE WBAT. Skilled PT for therex, bed mob, transfers, amb c RW, stairs. Rec post acute rehab. Walker: distance < 10 Distance pt will ambulate 100ft with RW Full chart review completed Yes Hospital course see comment Other findings Patient is a low complexity eval. Plan of care PT Gait training, Transfer training, Therapeutic exercise, Functional Activities, Balance training, Neuromuscular education Note * Wally Kari HALEY: PERFORM Event Display: Discharge/Transfer Note Hospital Authored Date: [id number] Nursing Discharge Note Entered On: 03/30/2024 13:24 EST Performed On: 03/30/2024 13:22 EST by Kari Lo RN Nursing Discharge Note 2 Discharge Time : 03/30/2024 13:13 EST Discharge Level of Care at Discharge : Inpatient Rehab Facility/Unit Discharge Nursing Homes/Rehab Facilities : [facility] Patient Left Unit Via : Chair Van Patient Accompanied Off Unit with : Ambulance/Chair Van Personnel Handover Given to Transport Personnel : Yes DC Instructions Provided & Signed by Pt : No Patient Understands D/C Instructions : Yes Verbalized Understanding of D/C Plan By : Patient Patient Instructions Discharge Signed : No Instructions for Discharge Comments : not required for rehab, patient and brother ( Allen ) aware of plan and agree Discharge Comments : patient had IV in right FA,removed, tip intact, no drainage, dsd applied Did Pt have Specialty Bed or Wound Vac : No Kari Lo RN - 03/30/2024 13:22 EST * Jocelyn Velazquez MD: PERFORM, MODIFY Event Display: Discharge/Transfer Note Hospital Authored Date: [id number] Patient: ??LETTY RIGGINS ? Age:??83 Years?Sex:??Female?:??1940?? Admit Date Admission Date: 03/28/2024 Discharge Date 03/30/2024 Discharge Diagnoses Multiple fractures of ribs, unspecified side, initial encounter for closed fracture, 03/29/2024 Hospital Course Ms. Riggins is an 83 year old female??with a??PMH of HTN, history of falls at home, and osteoarthritis?who presented to the ED following a??fall on 03/28. Denies LOC, head strike, dizziness, lightheadedness, chest pain or shortness of breath prior to falling. On imaging the patient sustained leftsided rib fractures 7-9 and was admitted for pain control.??No additional injuries found on tertiary exam. She has been??able to cough, and her IS was??250 throughout her hospital stay, partially dueto lack of understanding. She has had a good cough and denied any shortness of breath. On day of discharge, her pain was well-controlled on her regimen and she was tolerating a diet, voiding, and havi ng bowel movements. She will be discharged to [facility] today with plans to follow up in clinic in 1-2 weeks for her rib fractures.?? Objective/Physical Exam on Day of Discharge Vitals & Measurements T:??97.5?F?? HR:??55??(Peripheral)?? RR:??18?? BP:??137/88?? SpO2:??98%?? HT:??152??cm?? WT:??69.8??kg?? BMI:??30.21?? Physical Exam: Constitutional: No acute distress, awake, alert and oriented x3 Respiratory:??Minimal tenderness to palpation of ribs 7-9. IS is 250. Able to produce a nonproductive??cough.Normal respiratory rate and effort. ?? Cardiovascular: Regular rate and rhythm. ?? Gastrointestinal: Abdomen soft, non-distended, non-tender. No guarding, no rebound tenderness, Extremities: No clubbing or cyanosis Assessment/Plan Discharge Planning:? Future Appointments 2023 2:40 PM EST ?? With: Gui Scott MD Where: Trauma Surg [address] [place] [address]- Status: Pending Thursday 11:20 AM EST ?? With: Chanell ALBERT [facility]ly [facility] Where: Primary Care [address] [address]- Status: Pending Patient Discharge Condition Stable Discharge Disposition Home Home Health Face to Face ^HomeHealthFTF Inpatient Medications Medications (14) Active SCHEDULED: (12) Acetaminophen 325 mg Tablet (Acetaminophen Tablet) ??650 mg, By Mouth, Once Acetaminophen 325 mg Tablet (Acetaminophen) ??650 mg, By Mouth, Every 6 hours Albuterol/Ipratropium Inhalation Love 3mL (Duoneb Inhalation Solution) ??1 vials, BAND Nebulizer, 4 times a day Atenolol 50 mg Tablet (atenolol 50 mg oral tablet) ??100 mg, By Mouth, Daily Chlorthalidone 25 mg Tablet (chlorthalidone 25 mg oral tablet) ??12.5 mg, By Mouth, Daily Enoxaparin 40 mg Inj (Enoxaparin Inj) ??40 mg 0.4 mL, Subcutaneous Injection, Daily Escitalopram 10 mg Tablet (escitalopram 10 mg oral tablet) ??20 mg, By Mouth, Daily Gabapentin 100 mg Capsule (gabapentin 100 mg oral capsule) ??100 mg, By Mouth, 3 times a day Ibuprofen 400 mg Tablet (Ibuprofen Tablet) ??400 mg, By Mouth, 3 times a day Lidocaine 5% Topical Patch (Lidocaine 5% Patch) ??1 each, Topically, Once Simvastatin 10 mg Tablet (simvastatin 10 mg oral tablet) ??10 mg, By Mouth, Daily at bedtime Vitamin D 1000 IU Tablet (cholecalciferol 1000 intl units oral tablet) ??2,000 International_Units,By Mouth, Daily CONTINUOUS: (0) PRN: (2) Lorazepam 0.5 mg Tablet (LORazepam 0.5 mg oral tablet) ??0.5 mg, By Mouth, Daily OxyCODONE 5 mg IR Tablet (oxyCODONE 5 mg oral tablet) ??5 mg, By Mouth, Every 6 hours Discharge Medications Acetaminophen (acetaminophen 325 mg oral tablet)?650?Milligram?By Mouth?Every 6 hours?as needed?Pain , Mild Atenolol (atenolol 100 mg oral tablet)?1?tab(s)?By Mouth?Daily Azithromycin (Azithromycin 5 Day Dose Pack 250 mg oral tablet)?1?pack/packet?By Mouth?Once Chlorthalidone (chlorthalidone 25 mg oral tablet)?See Instructions?1/2 ??tablet By Mouth Daily Cholecalciferol (Vitamin D3 2000 intl units oral capsule)?1?capsule?50?Microgram?By Mouth?Daily?for 30?Days Durable Medical Equipment (Compression Stockings)?See Instructions?surgical, calf length 20-30 mm Hg, 1 pair Escitalopram (escitalopram 20 mg oral tablet)?1?tab(s)?20?Milligram?By Mouth?Daily Gabapentin (gabapentin 100 mg oral capsule)?100?Milligram?By Mouth?3 times a day?as needed?Pain , Mild Ibuprofen (ibuprofen 400 mg oral tablet)?400?Milligram?By Mouth?3 times a day?as needed?Pain , Mild Lidocaine Topical (lidocaine 5% topical film)?Topically?Once Lorazepam (LORazepam 0.5 mg oral tablet)?1?tab(s)?0.5?Milligram?By Mouth?Daily?as needed?as needed for anxiety?may take less Oxycodone (oxyCODONE 5 mg oral tablet)?5?Milligram?By Mouth?Every 6 hours?as needed?Pain , Severe Potassium Chloride (potassium chloride 20 mEq oral tablet, extended release)?1?tab(s)?20?Milliequivalent?By Mouth?Daily?for 90?Days Simvastatin (simvastatin 10 mg oral tablet)?1?tablet?By Mouth?Daily at bedtime Labs Last 24 Hours No qualifying data available. Patient Instructions Trauma Special Instructions ? If you develop fever, chills, increased pain, nausea, vomiting, bleeding, or increased redness or pus around the wound please call the trauma surgery office at . Please take medicationsas prescribed and do not drive while on narcotic medications. ? If you have any questions, please call the trauma surgery office at . ? Please call your Primary Care Provider within 1 week for post hospital follow up and review of yourmedications. ? Please take all meds as prescribed ? You were seen for rib fractures, continue meds as prescribed, continue using IS 4-6 times every hour awake, you will follow up in the trauma clinic in 2 weeks, please arrive to the hospital one hour prior to appointment for a chest xray ? If breathing gets worse and meds not helping please seek medical attention VIDA ? If pain gets worse and meds arent helping can call office for advice ? In general, ribs take 4-6 weeks to heal so pain with movement is expected and should subside in a few minutes and at rest pain should be tolerable ?? Please follow up with PCP regarding sclerotic bone lesion within the right posterior iliac crest ??on CT??pelvis. * Slime ALBERT, Cherrie Pimentel: PERFORM Event Display: Discharge/Transfer Note Hospital Authored Date: Attending Attestation: ?? The patient was seen, examined, and discussed with the Trauma team on the date of service documented above. ??The clinical course, labs, and radiological studies were reviewed by me and findings on exam confirmed. ??I agree with the findings as well as the assessment and plan as delineated above. I have??performed the substantive portion of the medical decision making for the ?? Diagnoses Multiple fractures of ribs, unspecified side, initial encounter for closed fracture ??(S22.49XA) ?? --- Cherrie Palencia MD, RADHA, FACS, [facility] Division of Trauma, Acute Care Surgery, and Surgical Critical Care?? * Kristyn Gong RN: PERFORM, SIGN, VERIFY Event Display: Case Management Discharge Plan Authored Date: Patient: LETTY RIGGINS Age: 83 years Sex: Female : 1940 Associated Diagnoses: None Author: Kristyn Gong RN Discharge Plan Case Management Discharge Plan : Case Management Discharge Plan Data 03/30/2024 10:14 EST Discharge Level of Care at Discharge Inpatient Rehab Facility/Unit Discharge Nursing Homes/Rehab Facilities [facility] Discharge Transportation Arranged [facility] [phone] Discharge Arranged Transport Date/Time 03/30/2024 13:00 Mode of Transportation Arranged Chair Van Name of Agency #1 [facility] Service Categories #1 Occupational Therapy, Physical Therapy, Mcfp Service Comments #1 A chairvan was arranged through [facility] to transport patient today @ 1pm Name of Person Notified of Transfer Patient and brother Allen Lo RN, Kari Corona: PERFORM, MODIFY Event Display: Patient Education/Instruction Authored Date: Inpatient Adult Discharge Instructions. [address] [address] Name: LETTY RIGGINS : 1940?? Visit: 03/28/2024 11:41?? Current Date: 03/30/2024 11:03 ?? Account: [id number]?? Inpatient Adult Discharge Instructions We would like to thank you for allowing us to assist you with your healthcare needs. The following includes patient education materials and information regarding your injury/illness. Our entire staffstrives to provide an excellent experience for our patients and their families. PLEASE ENSURE YOU FOLLOW-UP PER THE INSTRUCTIONS BELOW! ?? YOUR OPINION IS IMPORTANT TO US! Please complete the survey you may receive by mail or email. Your feedback will be used to make improvements to the healthcare experiences of our patients and their families. Surveys are administered by [employer] ?? If further treatment with your primary care physician or another doctor is recommended, it is important for you to keep the appointment. Call your primary care physician or return to the Emergency Department immediately if your condition worsens, fails to improve, or new symptoms develop. If you need to find a doctor, you can call [facility] [employer] for a referral at [phone] or toll free at [phone]) or log in to [email or web address].. ?? [facility], in keeping with [facility] guidance, no longer requires face masks for staff, patientsor visitors in most situations. Similiar to time spent indoors at other locations, there is the chance that you were exposed to repiratory viruses during your time with us (such as flu or COVID-19). If you develop symptoms concerning for a viral respiratory infection, please seek testing (and treatment if indicated) from your medical provider or home test kit. ?? You can view and manage your care through the patient portal or by using a health care mike of your choosing. [employer] is a website that allows you to securely view your medical information including your hospital discharge summary, office visit summaries, medications and follow-up visits. You can also request appointments, renew medications, and request access to your medical information using a health care mike of your choosing, or just ask a question. You can enroll at [email or web address] or register during your next office visit. You have been discharged from [facility], Patient Care Unit: SW7??. If you have any questions regarding these instructions, including results of studies pending, afteryou leave, please call us and we will be happy to assist you 10/11. [facility] Your Care Team Attending Physician Mindy Godoy MD?? Consulting Providers iMndy Godoy MD?? Discharging Providers Jocelyn Velazquez MD Reason for Your Visit mechnical fall from standing; shoe slipped; landed on back; has left upper back and shoulder pain; no thinners; no LOC; no headstrike?? Your Diagnosis Multiple fractures of ribs, unspecified side, initial encounter for closed fracture Tests Performed Below is a partial list of the tests performed during your hospitalization. You may have had other tests and procedures not included in this list. Please discuss all test results with your provider. CBC w/ Differential Comprehensive Metabolic Panel COVID-19 (Novel Coronavirus), Rapid PCR High??Sensitivity??Troponin T TSH with T4 Reflex (Adults Only) Urinalysis w/hold for Urine Culture CT Cervical Spine W/O Contrast CT Head/Brain W/O Contrast CT Lumbar Spine W/O Contrast CT Pelvis W/O Contrast CT Thoracic Spine W/O Contrast CXR W/ Frontal and Lat CBC w/ Differential?? COVID-19 (Novel Coronavirus), Rapid PCR?? CT Cervical Spine W/O Contrast?? CT Head/Brain W/O Contrast?? CT Lumbar Spine W/O Contrast?? CT Pelvis W/O Contrast?? CT Thoracic Spine W/O Contrast?? Comprehensive Metabolic Panel?? High??Sensitivity??Troponin T?? TSH with T4 Reflex (Adults Only)?? Urinalysis w/hold for Urine Culture?? Chest 2 Views Frontal and Lat (CXR W/ Frontal and Lat)?? Primary Care Provider Coreen Lua MD? Advance Directive Health Care Proxy on File Yes - Health Care Proxy Yes - MOLST Discharge Vitals Temperature: 97.5 DegF Height: 152 cm Pulse Rate: 55 bpm Weight: 69.8 kg Respiratory Rate: 18 br/min Body Mass Index:??30.21 kg/m2??Critical Systolic Blood Pressure: 137 mm Hg Body surface area: 1.72 Diastolic Blood Pressure:??88 mm Hg??High ?? Oxygen Saturation: 98 % ?? Studies Pending All studies ordered during this hospital stay have been completed unless listed below. Please discuss all pending results with your provider listed above in these instructions. ?? No incomplete studies found?? What to do next Instructions From Your Doctor Trauma Special Instructions ? If you develop fever, chills, increased pain, nausea, vomiting, bleeding, or increased redness or pus around the wound please call the trauma surgery office at . Please take medicationsas prescribed and do not drive while on narcotic medications. ? If you have any questions, please call the trauma surgery office at . ? Please call your Primary Care Provider within 1 week for post hospital follow up and review of yourmedications. ? Please take all meds as prescribed ? You were seen for rib fractures, continue meds as prescribed, continue using IS 4-6 times every hour awake, you will follow up in the trauma clinic in 2 weeks, please arrive to the hospital one hour prior to appointment for a chest xray ? If breathing gets worse and meds not helping please seek medical attention VIDA ? If pain gets worse and meds arent helping can call office for advice ? In general, ribs take 4-6 weeks to heal so pain with movement is expected and should subside in a few minutes and at rest pain should be tolerable ?? Please follow up with PCP regarding sclerotic bone lesion within the right posterior iliac crest ??on CT??pelvis. ?? Orders? 03/30/24 9:57:00 EST?? Scheduled Follow-Up Appointments 2023 2:40 PM EST ?? With: Gui Scott MD Where: Trauma Surg [address] [place] [address]- Status: Pending Thursday 11:20 AM EST ?? With: Coreen Lua MD Where: Primary Care [address] [address]- Status: Pending You Need to Schedule the Following Appointments Follow Up with??Coreen Lua When:??Within 1 to 2 weeks Where: [address] [place] [address] [place] [address]- Business (1) Discharge Medications LETTY RIGGINS :1940 Visit Date:03/28/2024 Medications: Please continue your medications until treatment is completed or stopped by your provider. Medications not listed below should be discontinued. Discuss any questions related to medications with your provider. What How Much When Instructions Next Dose New Acetaminophen (acetaminophen 325 mg oral tablet) 650 Milligram Oral Every 6 hours as needed for Pain , Mild take as directed New Gabapentin (gabapentin 100 mg oral capsule) 100 Milligram Oral 3 times a day as needed for Pain , Mild take as directed New Ibuprofen (ibuprofen 400 mg oral tablet) 400 Milligram Oral 3 times a day as needed for Pain , Mild take as directed New Lidocaine Topical (lidocaine 5% topical film) 1 patch Topically Daily due 03/31 at 9am New Oxycodone (oxyCODONE 5 mg oral tablet) 5 Milligram Oral Every 6 hours as needed for Pain , Severe take as directed Unchanged Atenolol (atenolol 100 mg oral tablet) 1 tab(s) Oral Daily due 03/31 at 9am Unchanged Chlorthalidone (chlorthalidone 25 mg oral tablet) See instructions 1/ 2 ??tablet By Mouth Daily ?? due 03/31 at 9am Unchanged Cholecalciferol (Vitamin D3 2000 intl units oral capsule) 1 capsule Oral Daily Duration: 30 Days due 03/31 at 9am Unchanged Durable Medical Equipment (Compression Stockings) See instructions surgical, calf length 20-30 mm Hg, 1 pair ?? Unchanged Escitalopram (escitalopram 20 mg oral tablet) 1 tab(s) Oral Daily due 03/31 at 9am Unchanged Lorazepam (LORazepam 0.5 mg oral tablet) 1 tab(s) Oral Daily as needed for as needed for anxiety may take less ?? take as directed Unchanged Potassium Chloride (potassium chloride 20 mEq oral tablet, extended release) 1 tab(s) Oral Daily Duration: 90 Days due 03/31 at 9am Unchanged Simvastatin (simvastatin 10 mg oral tablet) 1 tab(s) Oral Daily at Bedtime due 03/30 at 9pm ?? What How Much When Comments Stop Taking Azithromycin (Azithromycin 5 Day Dose Pack 250 mg oral tablet) 1 pack/packet Oral Once Prescription Given During Visit No new medications prescribed at time of discharge.?? Laboratory Results Below is a partial list of the most recent Laboratory test results done prior to this discharge. You may have had other tests and procedures not included in this list. Please discuss all test resultswith your provider. Est Creatinine Clearance - 49.12 mL/min (03/28/2024) CBC w/ Differential (03/28/2024) ???WBC - 11.3 k/mm3???RBC - 4.58 m/mm3???Hgb - 13.1 Gm/dL???Hct - 40.8 %???MCV - 89.1 femtoliters???MCH - 28.6 pg???MCHC - 32.1 Gm/dL???Platelet Count - 180 k/mm3???RDW-SD - 43.4 femtoliters???MPV - 11.7 femtoliters???Nucleated RBC (Automated) - 0.0 #/100 WBC'S???Abs. NRBC - 0.0 k/mm3???Abs. Neut -9.5 k/mm3???Abs. Lymph - 0.9 k/mm3???Abs. [place] - 0.7 k/mm3???Abs. Eo - 0.0 k/mm3???Abs. Baso - 0.0 k/mm3???Neut % - 84.4 %???Lymph % - 8.0 %???[place] % - 6.2 %???Eos % - 0.4 %???Baso % - 0.3 %???Imm Gran - 0.7 %???Abs. Imm Gran - 0.1 k/mm3 Comprehensive Metabolic Panel (03/28/2024) ???Sodium - 140 mmol/L???Potassium - 4.3 mmol/L???Chloride - 102 mmol/L???Bicarbonate Level - 27 mmol/L???Anion Gap - 11???Glucose Level - 131 mg/dL???BUN - 14 mg/dL???Creatinine-Blood - 0.64 mg/dL???Estimated GFR Creatinine - 89 ML/MIN/1.73 M2???Calcium - 9.2 mg/dL???Protein, Total - 6.8 Gm/dL???Albumin - 3.8 Gm/dL???AG Ratio - 1.3???Alkaline Phosphatase - 168 units/L???AST (SGOT) - 44 units/L???ALT (SGPT) - 20 units/L???Bilirubin, Total - 0.8 mg/dL COVID-19 (Novel Coronavirus), Rapid PCR (03/28/2024) ???COVID-19 by RT-PCR - NEGATIVE High??Sensitivity??Troponin T (03/28/2024) ???High Sensitivity Troponin (HSTnT) - 22 ng/L TSH with T4 Reflex (Adults Only) (03/28/2024) ???TSH - 1.56 uIU/mL Urinalysis w/hold for Urine Culture (03/29/2024) ???Appear/Color, Urine - YELLOW???Specific M[place]ison, Urine - 1.025???pH, Urine - 6.5???Albumin, Urine - TRACE???Glucose, Urine - NEGATIVE???Ketones, Urine - NEGATIVE???Bilirubin, Urine - NEGATIVE???Hemoglobin, Urine - TRACE???Nitrite, Urine - NEGATIVE???Leukocyte, Urine - NEGATIVE???Urobilinogen - 2mg/dL???WBC's, Urine - 1 /HPF???RBC's, Urine - 11 /HPF???Squamous Epith - 5 /HPF???Mucus - SLIGHT???Hold Urine Culture - Testing available 48 hours from time of collection. You will be contacted within 72 hours with your results. Allergies (NKA means No Known Allergies) penicillins Problems Active Problems??(11) Anxiety and depression?? At high risk for falls?? Depression?? Fall at home?? THEO (generalized anxiety disorder)?? HTN - Hypertension?? Hypercholesterolemia?? Major depression?? OA (osteoarthritis) of knee?? Obese class I?? Vitamin D deficiency?? Education Materials Below is the list of Educational Leaflet Providered with your Discharge Instructions. [employer] Patient Education - Rib Fracture (Broken Rib)?? Valuables and Belongings I fully understand and agree that [facility] accepts no responsibility for all my personal property including clothing, toilet articles, radios, jewelry, dentures, hearing aids, rings, money, or any other property that is in my possession or is brought to me after admission. I understand certain valuables may be placed in a hospital safe for a short period of time. I understand that the hospital is not liable for loss or damage due to accident, fire, or other natural occurrence while said property is in the safe. I accept full responsibility for any personal property that I keep with me, and will not hold the hospital responsible in case of loss or disappearance. I acknowledge that i have been encouraged to send valuables and belongings home. ?? Date for Pt to Sign Valuables/Belongings: 03/29/24 05:53:00 ?? Other Discharge Information ? Case Management Discharge Plan?? Discharge Plan?? Discharge Agency Information?? Discharge Level of Care at Discharge: Inpatient Rehab Facility/Unit Name of Agency #1: [facility] Discharge Transportation Arranged: [facility] G[facility] [phone] Service Categories #1: Occupational Therapy, Physical Therapy, Mcfp Mode of Transportation Arranged: Chair Van Service Comments #1: A chairvan was arranged through [facility] to transport patient today @ 1pm Discharge Arranged Transport Date/Time: 03/30/24 13:00:00 Name of Person Notified of Transfer: Patient and brother Allen Discharge Nursing Homes/Rehab Facilities: [facility] ? Pulmonary Rehab Status?? Pulmonary Rehab Discharge Status?? Respiratory Rate: 18 br/min ? Common Emergency Awareness Tips IS IT A STROKE? Act FAST and Check for these signs: FACE Does the face look uneven? ARM Does one arm drift down? SPEECH Does their speech sound strange? TIME Call at any sign of stroke ?? Heart Attack Signs Chest discomfort: Most heart attacks involve discomfort in the center of the chest and lasts more than a few minutes, or goes away and comes back. It can feel like uncomfortable pressure, squeezing, fullness or pain. Discomfort in upper body: Symptoms can include pain or discomfort in one or both arms, back, neck, jaw or stomach. Shortness of breath: With or without discomfort. Other signs: Breaking out in a cold sweat, nausea, or lightheaded. Remember, MINUTES DO MATTER. If you experience any of these heart attack warning signs, call to get immediate medical attention! ?? Smoking can increase your chances of developing chronic health problems and can cause harmful effects to other family members in your house. If you smoke, you are strongly encouraged to quit. Please call [facility] [employer] at [phone] or [phone] [facility] ([phone]) or log in to [email or web address] for referrals to smoking cessation programs. ?? 129 Suicide & Crisis Lifeline is available 10/11 if you or someone you know needs to find a reason to keep living. By calling 323 you'll be connected to a skilled, trained counselor at a crisis center in your area. INPATIENT DISCHARGE INSTRUCTIONS SIGNATURE LETTY FLYNN Location:[facility] Registration Date and Time:03/28/2024 11:41 EST Primary Care Physician: Coreen Lua MD, Attending Physician: Mindy Godoy MD, LETTY RIDLEY, have received the above patient education materials/instructions and have verbalized understanding. If ambulance or transport services are being used I further acknowledge beinggiven a choice of service. ?? If you need to contact me, please call me at this number: . Patient/Hoisting Laborer Name: Patient/Hoisting Laborer Signature: Relationship to Patient: Witness Name/Signature: Date: * Kari Lo RN: PERFORM, SIGN, VERIFY Event Display: Patient Education Handout Authored Date: [id number] * Jocelyn Velazquez MD: PERFORM Event Display: Patient Education Leaflets Authored Date: [id number] Rib Fracture (Broken Rib) ?? [address] Rib Fracture (Broken Rib) Your ribs are curved bones in your chest. They help protect your lungs and expand and contract whenyou breathe. Children's ribs bend easily and can often withstand a blow or fall. But adult ribs aremore likely to break (fracture) under stress. Even coughing or a hard sneeze can fracture a rib. When to go to the emergency room (ER) Although they can be painful, most rib fractures aren't serious. But they often make it hard to cough or breathe deeply. Get to the ER or call 911 right away if you have: ??? Trouble breathing ??? Nausea, vomiting, or stomach pain with a sore or bruised rib ??? Pain that gets worse over time ??? Aninjury to the chest or stomach ?? What to expect in the ER Here's what will happen in the ER:? A healthcare provider will ask about your injury and examine you carefully. ??? An X-ray of your chest will likely be taken to show any major damage to ribs and lungs. But ribs can have small breaks that don't show up on X-rays, even though they still hurt. In some cases, a CT scan may be done. ??? You may be given??medicine to ease your discomfort. ??? In rare cases, rib fractures can cause a lung to collapse or lead to bleeding in the chest. In these cases, a tube will be inserted into the chest to reinflate the lung or drain the blood. ?? Follow-up You are likely to heal in 6 to 8 weeks. Most rib fractures heal on their own with no lasting effects. Call your??healthcare provider??right away if you notice any of these symptoms: ??? Increased chest pain ??? Shortness of breath ??? Fever of 100.4??F (38??C) or above, or as advised by your provider ??? Chills ??? Coughing up blood ?? Last Reviewed Date: 2023 ?? [id number] [employer]. All rights reserved. This information is not intended as a substitute for professional medical care. Always follow your healthcare professional's instructions. ?? * Cecilio Chris MD: Cecilio Cuevas MD: LATASHA PAGAN MD, Tommy: MODIFY, PERFORM, MODIFY Event Display: Care Team Progress Note Authored Date: [id number] Patient: ??LETTY RIGGINS ? Age:??83 Years?Sex:??Female?:??1940?? Subjective Patient seen and evaluated at bedside during morning rounds. She was resting comfortably. No acute events overnight. Patient reports her pain is a 4/10 and much improved since yesterday when it was 10/10.??Denies nausea or vomiting. Voiding without issue. ?? Ambulating with a walker. Denies fever/chills, chest pain or SOB. ?? Review of Systems As per HPI Physical Exam Vitals & Measurements T:??98.6?F?? HR:??69??(Peripheral)?? RR:??18?? BP:??145/63?? SpO2:??98%?? HT:??152??cm?? WT:??69.8??kg?? BMI:??30.21?? General appearance: ??No apparent distress, appears stated age, well developed. Head: normocephalic, atraumatic, no abrasions, no hematoma, no ecchymosis Eyes: ??EOMI ENT: ??Ears:??Hearing intact ?Nose: no deformity, no epistaxis ?Oropharynx/Mouth: normal ?Tongue: no Laceration, no hematoma ?Mandible: no malocclusion,??multiple missing teeth ?Neck: no subcutaneous air, not with hematoma, without swelling, no lacerations, no abrasions Chest: Minimal tenderness to palpation of ribs 7-9. IS is 250. Able to produce a nonproductive??cough.??Symmetric, no abrasion, no laceration, no sternum tenderness/deformity, no rib deformity Cardiac: Regular rate Respiratory:?normal WOB?? on RA Abdomen: no tenderness, soft, not distended. Back: ??no step offs or deformity, no abrasion, no wound Cervical spine: no pain, no deformity, no stepoff Thoracic spine: no pain, no deformity, no stepoff Lumbar spine: no pain, no deformity, no stepoff Pelvis: ??stable, no pain Extremities: ??normal active ROM, no abrasion, no laceration Neurologic status:?Alert and oriented Adult [place] Coma Scale: Eye opening response: spontaneous (4), Verbal response oriented and converses (5), Motor response obeys commands appropriately (6) GCS 15. Assessment/Plan Ms. Riggins is an 83 year old female with a??PMH of HTN, history of falls at home, and osteoarthritis ??who presented to the ED following a??fall. Denies LOC, head strike, dizziness, lightheadedness,chest pain or shortness of breath prior to falling.??The patient lives with her younger sister. Wong is her health care proxy. Her initial pain is improving on her current regimen. No additional injuries found on tertiary exam. She is able to cough, and her IS is 250 (partially low due to lack of understanding how to use).??Of note, she also states??she??had??COVID followed??be PNA about??2 months ago. ?? Injuries: Fractures of the left posterior ribs 7-9 with adjacent atelectasis ?? Diagnoses Multiple fractures of ribs, unspecified side, initial encounter for closed fracture ??(S22.49XA) ?? Consultants: None ?? Plan: Admit to??Trauma Surgery Regular diet Pain??control Encourage OOB PT consult (awaiting PT eval) Encourage incentive spirometer use DVT PPx: LVNX ? Please page Trauma Surgery with any questions or concerns [id number].?? Case to be discussed with resident and attending Dr. Palencia Documented with assistance from Kisha Maciel MS-IV Intake and Output Intake and Output Results?? This visit (24 hour periods starting at 07:00 EST)? 03/29/24 *?? 03/28/24?? 03/27/24?? Total Summary?Intake mL?? --?? --?? --?Output mL?? --?? 150?? --?Fluid Balance ?? --?? -150?? --?? Intake (0)? Output (1)?Urine Voided mL?? --?? 150?? --?Total?? --?? 150?? --?? Counts (1)?Urine Voided mL?? --?? 150?? --? * This column has not completed the indicated time period.?? Labs Last 24 Hours BLOOD COUNT & DIFF ? Event Name?? Event Result?? Date/Time?? WBC 11.3 k/mm3??High 03/28/24 15:11:00 RBC 4.58 m/mm3 03/28/24 15:11:00 Hgb 13.1 Gm/dL 03/28/24 15:11:00 Hct 40.8 % 03/28/24 15:11:00 MCV 89.1 femtoliters 03/28/24 15:11:00 MCH 28.6 pg 03/28/24 15:11:00 MCHC 32.1 Gm/dL??Low 03/28/24 15:11:00 Platelet Count 180 k/mm3 03/28/24 15:11:00 MPV 11.7 femtoliters 03/28/24 15:11:00 Nucleated RBC (Automated) 0 #/100 WBC'S 03/28/24 15:11:00 ? CHEM GENERAL ? Event Name?? Event Result?? Date/Time?? Sodium 140 mmol/L 03/28/24 15:11:00 Chloride 102 mmol/L 03/28/24 15:11:00 Bicarbonate Level 27 mmol/L 03/28/24 15:11:00 Anion Gap 11 03/28/24 15:11:00 Glucose Level 131 mg/dL??High 03/28/24 15:11:00 BUN 14 mg/dL 03/28/24 15:11:00 Creatinine-Blood 0.64 mg/dL 03/28/24 15:11:00 Alkaline Phosphatase 168 units/L??High 03/28/24 15:11:00 AST (SGOT) 44 units/L??High 03/28/24 15:11:00 ALT (SGPT) 20 units/L 03/28/24 15:11:00 Bilirubin, Total 0.8 mg/dL 03/28/24 15:11:00 ? Images anh For Exam Trauma ?? RESULT: CT Head/Brain W/O Contrast CT Head/Brain W/O Contrast, CT Cervical Spine W/O Contrast? INDICATION: Reason: Trauma; Clinical Question(s): Hematoma ?? TECHNIQUE: Noncontrast head CT using axial technique was reconstructed in axial and coronal planes.Noncontrast spiral CT through the cervical spine was formatted in 3 planes. Automatic tube modulation was used for the cervical spine and iterative dose reconstruction was used for both the head and cervical spine to optimize scan parameters and image quality. ? CTDIvol Body: 12.67 mGy, ??DLP Body: 248 mGy*cm. ? CTDIvol Head: 45.61 mGy, DLP Head: 821 mGy*cm. ? COMPARISON: 03/28/2022. ?? FINDINGS:? Restaurant Inspector View Findings, Lines and Tubes: None. ?? BRAIN AND EXTRA-AXIAL SPACES: No parenchymal hemorrhage, midline shift, or mass effect. Bang-white matter differentiation is wellpreserved. No acute infarct. ?? Mild prominence of the ventricles and sulci consistent with parenchymal volume loss. ? Mild low-density white matter changes. ?? No subarachnoid hemorrhage. No subdural or epidural collection. ?? CALVARIUM, SKULL BASE, AND SOFT TISSUES: No fractures or suspicious bony lesions.? Partial opacification of the left maxillary and right sphenoid sinuses. Mastoid air cells are clear. ?? Post lens replacement. ?? Chronic deformity of the soft tissues overlying the nasal bones.? CERVICAL SPINE:?? No fracture. No acute osseous abnormalities. ?? Normal alignment. No locked or perched facet. Mild multilevel degenerative disc space narrowing andend plate irregularity. ?? OTHER BONES:?? No acute abnormality. ?? CERVICAL SOFT TISSUES AND LUNG APICES:?? Normal soft tissues. Visualized lung apices are clear. ?? IMPRESSION: ?? No acute abnormality of the head or cervical spine. ?? WSN: [id number] ? Ordering Physician: Jadyn Hawkins ?? Signature Line Dictated By: ?Kira Echevarria MD Dictated Date/Time: ?03/28/24 2:37 pm Reviewed By: ?Kira Echevarria MD Signed By: ? Wale ALBERT, Kira Signed Date/Time: ? 03/28/24 2:37 pm Transcribed By: ? CSB Transcribed Date/Time: ?03/28/24 2:29 pm ? CT Head/Brain W/O Contrast This document has an image ?? Reason For Exam Pelvic trauma;Other: ?? RESULT: CT Pelvis W/O Contrast CT Pelvis W/O Contrast? Reason: Other:; Pelvic trauma; Clinical Question(s): Other:; Fracture? TECHNIQUE: Spiral CT without IV contrast through the pelvis only formatted in 3 planes. Enteric contrast administered. Automatic tube modulation and/or iterative dose reconstruction were used to optimize exposure parameters.? CTDIvol Body: 11.76 mGy, ??DLP Body: 359 mGy*cm. ? COMPARISON: None ?? FINDINGS:? Evaluation of the bony pelvis, and proximal femora demonstrate no evidence of acute fracture. Mild hip joint space narrowing bilaterally. Mild degenerative changes of the sacroiliac joints and pubic symphysis. ??Mixed lucent and sclerotic bone lesion within the right posterior iliac crest measuringat least 2.4 x 1.5 cm. ?? The included musculature demonstrates no evidence of atrophy or fatty infiltration. Rounded soft tissue density mass or lymph node in the right inguinal region measuring 1.9 x 1.8 cm. Small broad-based fat-containing umbilical hernia. ?? Included small and large bowel loops are normal in caliber. Moderate amount retained stool throughout the colon. ?? Probable 1.8 cm calcified uterine fibroid. Urinary bladder contour is unremarkable. No evidence of intraperitoneal free air or ascites. No evidence of retroperitoneal lymphadenopathy. ?? IMPRESSION:? No evidence of pelvic fracture. ?? 1.9 x 1.8 cm soft tissue density mass within the right inguinal region concerning for lymphadenopathy. Correlation with dedicated ultrasound is recommended. ?? Mixed lucent and sclerotic bone lesion within the right posterior iliac crest measuring 2.4 x 1.5 cm is indeterminant but may represent a cartilage-containing lesion such as enchondroma. Correlation with prior imaging recommended to establish long-term stability of this finding. ?? Additional chronic findings as above ? An actionable message ([place]) has been communicated via the Nativeflow system on 03/28/2024 2:54 PM, Message ID [id number]. WSN: [id number] ? Ordering Physician: Jadyn Hawkins ?? Signature Line Dictated By: ?Aidan Pineda Jr, MD Dictated Date/Time: ?03/28/24 2:54 pm Reviewed By: ?Aidan Pineda Jr, MD Signed By: ? Aidan Pineda Jr, MD Signed Date/Time: ? 03/28/24 2:54 pm Transcribed By: ? CSB Transcribed Date/Time: ?03/28/24 2:48 pm ? CT Pelvis W/O Contrast This document has an image Reason For Exam Neck trauma, dangerous injury mechanism;Other: ?? RESULT: CT Cervical Spine W/O Contrast CT Head/Brain W/O Contrast, CT Cervical Spine W/O Contrast? INDICATION: Reason: Trauma; Clinical Question(s): Hematoma ?? TECHNIQUE: Noncontrast head CT using axial technique was reconstructed in axial and coronal planes.Noncontrast spiral CT through the cervical spine was formatted in 3 planes. Automatic tube modulation was used for the cervical spine and iterative dose reconstruction was used for both the head and cervical spine to optimize scan parameters and image quality. ? CTDIvol Body: 12.67 mGy, ??DLP Body: 248 mGy*cm. ? CTDIvol Head: 45.61 mGy, DLP Head: 821 mGy*cm. ? COMPARISON: 03/28/2022. ?? FINDINGS:? Restaurant Inspector View Findings, Lines and Tubes: None. ?? BRAIN AND EXTRA-AXIAL SPACES: No parenchymal hemorrhage, midline shift, or mass effect. Bang-white matter differentiation is wellpreserved. No acute infarct. ?? Mild prominence of the ventricles and sulci consistent with parenchymal volume loss. ? Mild low-density white matter changes. ?? No subarachnoid hemorrhage. No subdural or epidural collection. ?? CALVARIUM, SKULL BASE, AND SOFT TISSUES: No fractures or suspicious bony lesions.? Partial opacification of the left maxillary and right sphenoid sinuses. Mastoid air cells are clear. ?? Post lens replacement. ?? Chronic deformity of the soft tissues overlying the nasal bones.? CERVICAL SPINE:?? No fracture. No acute osseous abnormalities. ?? Normal alignment. No locked or perched facet. Mild multilevel degenerative disc space narrowing andend plate irregularity. ?? OTHER BONES:?? No acute abnormality. ?? CERVICAL SOFT TISSUES AND LUNG APICES:?? Normal soft tissues. Visualized lung apices are clear. ?? IMPRESSION: ?? No acute abnormality of the head or cervical spine. ?? WSN: [id number] ? Ordering Physician: Jadyn Hawkins ?? Signature Line Dictated By: ?Kira Echevarria MD Dictated Date/Time: ?03/28/24 2:37 pm Reviewed By: ?Kira Echevarria MD Signed By: ? Kira Echevarria MD Signed Date/Time: ? 03/28/24 2:37 pm Transcribed By: ? CSB Transcribed Date/Time: ?03/28/24 2:29 pm Reason For Exam Spine fracture, lumbar, traumatic;Other: ?? RESULT: CT Lumbar Spine W/O Contrast CT Thoracic Spine W/O Contrast, CT Lumbar Spine W/O Contrast? INDICATION: Reason: Other:; Spine fracture, thoracic, traumatic; Clinical Question(s): Fracture Dislocation, Fracture/Dislocation ?? TECHNIQUE: Noncontrast CT of the thoracic and lumbar spine was performed. Bone and soft tissue algorithms were reconstructed along with coronal and sagittal computations. ?? Weight-based protocol using automatic tube modulation was used to optimize exposure parameters.? RADIATION DOSE PARAMETERS:? CTDIvol Body: 15.48 mGy, ??DLP Body: 811 mGy*cm. ? COMPARISON: No relevant ? FINDINGS: ?? There are acute, nondisplaced fractures of the posterior left seventh through ninth rib at the costovertebral junction. No vertebral body fractures are seen. Kyphosis within the thoracic spine is noted. There is a 0.6 cm anterolisthesis of L4 on L5. ?? A soft tissue ovoid mass at the posterior right fourth-fifth interspace is seen which may representa schwannoma. ?? The heart is normal in size. Coronary arterial calcification is present. Subcentimeter mediastinal lymph nodes are demonstrated. ?? Atelectasis adjacent to the left rib fractures is seen. ?? A hiatal hernia is present. ?? The remainder of the visualized abdominal contents are unremarkable. ?? IMPRESSION: ?? Fractures of the left posterior seventh through ninth ribs with adjacent atelectasis. ?? An actionable message ([place]) has been communicated via the Nativeflow system on 03/28/2024 3:55 PM, Message ID [id number]. WSN: [id number] ?? Ordering Physician: Jadyn Hawkins ?? anh For Exam Spine fracture, thoracic, traumatic;Other: ?? RESULT: CT Thoracic Spine W/O Contrast CT Thoracic Spine W/O Contrast, CT Lumbar Spine W/O Contrast? INDICATION: Reason: Other:; Spine fracture, thoracic, traumatic; Clinical Question(s): Fracture Dislocation, Fracture/Dislocation ?? TECHNIQUE: Noncontrast CT of the thoracic and lumbar spine was performed. Bone and soft tissue algorithms were reconstructed along with coronal and sagittal computations. ?? Weight-based protocol using automatic tube modulation was used to optimize exposure parameters.? RADIATION DOSE PARAMETERS:? CTDIvol Body: 15.48 mGy, ??DLP Body: 811 mGy*cm. ? COMPARISON: No relevant ? FINDINGS: ?? There are acute, nondisplaced fractures of the posterior left seventh through ninth rib at the costovertebral junction. No vertebral body fractures are seen. Kyphosis within the thoracic spine is noted. There is a 0.6 cm anterolisthesis of L4 on L5. ?? A soft tissue ovoid mass at the posterior right fourth-fifth interspace is seen which may representa schwannoma. ?? The heart is normal in size. Coronary arterial calcification is present. Subcentimeter mediastinal lymph nodes are demonstrated. ?? Atelectasis adjacent to the left rib fractures is seen. ?? A hiatal hernia is present. ?? The remainder of the visualized abdominal contents are unremarkable. ?? IMPRESSION: ?? Fractures of the left posterior seventh through ninth ribs with adjacent atelectasis. ?? An actionable message ([place]) has been communicated via the Nativeflow system on 03/28/2024 3:55 PM, Message ID [id number]. WSN: [id number] ? Ordering Physician: Jadyn Hawkins ?? Signature Line Dictated By: ?Lisa Winchester MD Dictated Date/Time: ?03/28/24 3:55 pm Reviewed By: ?Lisa Winchester MD Signed By: ? Lisa Winchester MD Signed Date/Time: ? 03/28/24 3:55 pm Transcribed By: ? CSB Transcribed Date/Time: ?03/28/24 3:50 pm ? CT Thoracic Spine W/O ContrastThis document has an image ? Patient Care team information Care Team Personnel Name: Beatriz Randhawa RN Position: [facility] Nurse Member Role: Primary Care Nurse Name: Celsa Siddiqi RN Position: [facility] RN Member Role: Primary Care Nurse Name: Coreen Lua MD Position: [facility] Physician - Primary Care Member Role: PCP Address: [address] [place] [address] Telecom: Care Team Related Persons Name: ALLEN RIGGINS Name: THUAN RIGGINS Insurance Providers Guarantor name: LETTY RIGGINS Health Plan Information #: 1 Payer: MEDICARE PART B OUTPT Member Number: [id number] Policy Number: NA Group Number: NA Health Plan Information #: 2 Payer: [facility] Member Number: [id number] Policy Number: NA Group Number: [id number]
== END 2024-04-22 11:29 | disposition home or self-care (01) ==
PROVIDERS: PCP Internal Medicine; Visit Provider Psychiatry & Neurology Neurology
DX: R48.2 Apraxia (principal)
CPT/HCPCS: 99204; G2211

== ENCOUNTER → 2024-04-22 10:25 | Outpatient (BNVA) | payer MEDICARE, OTHER, SELFPAY | PROVIDERS: PCP Internal Medicine; Visit Provider Psychiatry & Neurology Neurology | DX: R48.2 Apraxia (principal) | CPT/HCPCS: 99202 ==

== ENCOUNTER 2025-02-15 11:20 | Outpatient (AMB) | payer MEDICARE, OTHER, SELFPAY ==
--- NOTE | 2025-02-15 11:22 | MHC.OFFVIS ---
Vital Signs 02/15/25 11:23 Height 5 ft BP 120/76 Blood Pressure Location Rt brachial Position Sitting Pulse 60 Pulse Source Pulse Oximeter Pulse Oximetry (%) 97 Oxygen Delivery Method Room Air Intake Visit Reasons: follow up Intake Note: Follow up Gait apraxia, Parkinsonism Animal Bounty Hunter Required: No Accompanied by: Brother Allergies Penicillins Allergy (Unknown, Verified 02/15/25 11:23) Unknown Medication List - Last Reconciled 02/15/25 by Katie Powell MD acetaminophen 325 mg PO QID PRN atenolol 100 mg PO DAILY bisacodyl 10 mg MN DAILY PRN calcium carbonate (Tums) 200 mg PO BID carbidopa-levodopa 25-100 mg 1 tab PO TID chlorthalidone 25 mg PO DAILY cholecalciferol (vitamin D3) (Vitamin D3) 50 mcg PO DAILY docusate sodium (Colace) 100 mg PO DAILY gabapentin 100 mg PO BID guaifenesin (Michela-Tussin) 200 mg PO Q4H PRN lactulose 15 mL PO TID lidocaine HCl 4% (Aspercreme (lidocaine HCl)) 1 appl topical BID melatonin 3 mg PO BEDTIME PRN sertraline 50 mg PO DAILY simvastatin 10 mg PO BEDTIME HPI Comments Details: 83y/o female comes here for follow up of parkinsonism She is accompanied by her brother she is at [facility] now. she is wheelchair bound - due to shortage of staff they are unable to walk her Carbidopa/levodopa dose was not increased. enter . The patient denies any back pain or neck pain No falls No tremors PFSH Medical History Gait apraxia Cleft palate and lip Vitamin D deficiency Osteoarthritis Hypercholesteremia HTN (hypertension) Generalized anxiety disorder Depression Anxiety and depression Family History Mother Dementia Father CHF (congestive heart failure) Sister Diabetes Social History Patient Tobacco Use Status: Never used Tobacco Physical Exam Vital Signs: Last Vital Signs Pulse 60 02/15/25 11:23 BP 120/76 02/15/25 11:23 Pulse Ox 97 02/15/25 11:23 Oxygen Delivery Method Room Air 02/15/25 11:23 Const General: cooperative and comfortable Nutritional Appearance: average body habitus Orientation/consciousness: patient oriented x3 Neuro Other: dysconjugate gaze Normal blink and facial expression Good voice Repaired cleft palate FFM and foot taps normal Gait- unable to evaluate General: patient oriented x3, tone normal, moves all extremities, no focal motor deficits and Unable to assess gait Cranial nerves: Yes Facial sensation intact/muscles of mastication intact, Yes Bilaterally intact EOM present, Yes Nystagmus not present, Yes Normal facial strength present, Yes Midline tongue present, Yes Symmetric palate elevation present and Yes Ability to bilaterally elevate shoulders present Cognition (Neuro): normal cognition Gait exam (Neuro): Unable to assess gait Motor exam (neuro): 5/5 motor strength present throughout and Normal motor muscle tone present throughout Assessment & Plan Assessment & Plan (1) Gait apraxia: Comment: Frontal gait disorder, parkinsonism Code(s): R48.2 - Apraxia Category: Medical Plan Increase carbidopa/levodopa 25/100 2 tabs tid PT for gait training or an aide to walk patient 2-3 times a day for 15 minutes Medications: New carbidopa-levodopa 25-100 mg 1 tab PO TID 90 tabs 0RF Coding Level of Care Code Est Pt Level 4 (47096) Complex EM visit Add On G2211 Diagnoses Gait apraxia R48.2
[2025-02-15 11:23] VITALS: BP 120/76; PULSE 60; O2SAT 97
== END 2025-02-15 12:02 | disposition home or self-care (01) ==
LOC: HO.HSMS 11:21
PROVIDERS: PCP Internal Medicine; Visit Provider Psychiatry & Neurology Neurology
DX: R48.2 Apraxia (principal)
CPT/HCPCS: 99214; G2211

== ENCOUNTER → 2025-02-15 11:20 | Outpatient (BNVA) | payer MEDICARE, OTHER, SELFPAY | PROVIDERS: PCP Internal Medicine; Visit Provider Psychiatry & Neurology Neurology | DX: R48.2 Apraxia (principal) | CPT/HCPCS: 99212 ==